=== PATIENT | male | born 1965 | race Caucasian/White ===

== ENCOUNTER 2016-07-30 17:23 | Inpatient (IN) | payer OTHER ==
[~2016-07-30] VITALS: Ht 170.2 cm; Wt 74.0 kg
[~2016-07-30 17:23] MED LIST: ADVAIR 250/501 DISK IH; ADVAIR 500-501 EACH IH; ADVAIR 500/501 DISK IH; ALBUTEROL17 GM IH; ALLERGY RELIE15.8 ML BOTH NARES; ALPRAZOLAM0.5 MG PO; ANTACID300 M1 PO; AZITHROMYCIN250 MG PO; Advair HFA 115/21 IH; CALCIUM300 MG PO; CEFTIN250 MG PO; DALIRESP500 MCG PO; DELTASONE1 MG PO; DELTASONE20 MG PO; DUONEB 2.5-0.5 M3 ML AEROSOL; ENDOCET 5-3251 EAC1 PO; HABITROL,NICODE21 MG TD; LASIX20 MG PO; LEVAQUIN500 MG PO; LEVAQUIN750 MG PO; Levaquin PO; PREDNISONE10 M2 G-TUBE; PREDNISONE10 M2 PO; PREDNISONE10 MG PO; PREDNISONE50 MG PO; PROAIR HFA8.5 GM IH; PROVENTIL,2.5 MG/0.5 IH; PROVENTIL,2.5 MG/3 M IH; RAYOS5 MG PO; ROLAIDS PO; SPIRIVA1 INHALATI IH; TYLENOL EXTRA500 MG PO; TYLENOL325 M1 PO; VENTOLIN HFA18 GM IH; VENTOLIN17 GM IH; XANAX0.5 MG PO; Xanax PO; ZANTAC150 M1 PO; ZANTAC150 MG PO; ZITHROMAX250 MG PO; predniSONE PO
[2016-07-30 17:41] LABS: CARBOXY HGB 1.9 % (0-5); METHEMOGLOBIN 1.8 % (0-1.5); PCO2 98 mm Hg (35-45); PO2 328 mm Hg (80-100); pH 7.23 (7.35-7.45)
[2016-07-30 17:42] LABS: COMMENTS - BLOOD GASES A+C+; DEVICE 840; FI02 100 %; MODE SPONT; PEEP 5 CM/H20; PRES. SUPPORT 10 CM/H2O; SITE LR; TOTAL RESP RATE 24 resp/min
[2016-07-30 18:02] LABS: EOSINOPHIL (%) 0 % (0-5); HEMATOCRIT 42.2 % (38.0-50.0); IMMATURE GRANULOCYTE (%) 0.3 % (0.0-0.7); IMMATURE GRANULOCYTE COUNT 0.5 K/uL; LYMPHOCYTE COUNT 1.7 K/uL (1.0-2.8); MCH 31.8 PG (29.0-34.0); MCHC 32.5 G/DL (30.0-36.0); MCV 97.9 FL (86-99); MEAN PLAT.VOLUME 10.9 uM^3 (9.0-12.4); MONOCYTE COUNT 1.1 K/uL (0-0.8); NEUTROPHIL (%) 82.2 % (45-76); NEUTROPHIL COUNT 13.3 K/uL (1.8-6.4); PLATELET COUNT 209 K/uL (156-360); RBC DIS.WIDTH-CV 12.4 % (11.8-14.6); RBC DIS.WIDTH-SD 43.2 % (39-53); RED BLOOD COUNT 4.31 M/uL (4.00-5.50); WHITE BLOOD COUNT 16.2 K/uL (4.1-10.2)
[2016-07-30 18:14] LABS: CHLORIDE 98 mEq/L (99-109); POTASSIUM 4.6 mEq/L (3.7-5.4); SODIUM 142 mEq/L (136-147)
[2016-07-30 18:16] LABS: GLUCOSE 127 mg/dL (70-99)
[2016-07-30 18:18] LABS: ANION GAP 6 MEQ/L (2-14)
[2016-07-30 18:20] LABS: GFR ESTIMATE (CALCULATED) > 59 mL/min/
[2016-07-30 18:21] LABS: UREA NITROGEN (BUN) 10 mg/dL (9-23)
[2016-07-30 18:23] LABS: TROP-I INTERPRETATION NEGATIVE; TROPONIN-I < 0.01 ng/mL (0.0-0.30)
[2016-07-30 19:48] LABS: BASE EXCESS 8.2 mEq/L (-3 to +3); BICARBONATE 39.4 mEq/L (22-26); CARBOXY HGB 1.9 % (0-5); METHEMOGLOBIN 1.7 % (0-1.5)
[2016-07-30 19:49] LABS: COMMENTS - BLOOD GASES C+A+; DEVICE VENTILATOR; FI02 55 %; MODE SPONT-NIV; PCO2 92 mm Hg (35-45); PEEP 5 CM/H20; PO2 194 mm Hg (80-100); PRES. SUPPORT 12 CM/H2O; SITE RR; TOTAL RESP RATE 26 resp/min
[2016-07-30 19:50] LABS: pH 7.24 (7.35-7.45)
[2016-07-30] MEDS ORDERED: TYLENOL EXTRA500 MG PO (19:54)
[2016-07-30] MEDS ORDERED: [UNRECOGNIZED DRUG - OTHER] DT (19:58)
[2016-07-30] MEDS ORDERED: LEVOFLOXACIN500 MG PO (19:59)
[2016-07-30] MEDS ORDERED: [UNRECOGNIZED DRUG - REMARK] PO (19:59)
[2016-07-30 22:45] VITALS: BP 129/83; BP 130/86
[2016-07-30 23:00] VITALS: BP 121/81
[2016-07-31] VITALS (15 sets, daily range): BP systolic 96–151; BP diastolic 70–100
[2016-07-31 00:06] LABS: METH RESISTANT S AUREUS PCR NEGATIVE (NEGATIVE)
[2016-07-31 00:07] LABS: PROBE CHECK PASS; SPECIMEN PROCESSING CONTROL PASS
[2016-07-31 06:30] LABS: HEMATOCRIT 39.4 % (38.0-50.0); MCH 31.7 PG (29.0-34.0); MCHC 31.5 G/DL (30.0-36.0); MCV 100.8 FL (86-99); MEAN PLAT.VOLUME 11.7 uM^3 (9.0-12.4); PLATELET COUNT 199 K/uL (156-360); RBC DIS.WIDTH-CV 12.8 % (11.8-14.6); RED BLOOD COUNT 3.91 M/uL (4.00-5.50)
[2016-07-31 06:32] LABS: WHITE BLOOD COUNT 11.3 K/uL (4.1-10.2)
[2016-07-31 06:44] LABS: ANION GAP 7 MEQ/L (2-14); CHLORIDE 95 MEQ/L (99-109); GFR ESTIMATE (CALCULATED) > 59 mL/min/; GLUCOSE 130 mg/dL (70-99); POTASSIUM 4.8 MEQ/L (3.7-5.4); SAMPLE HEMOLYSIS CHECK 0; SAMPLE ICTERIC CHECK 0; SAMPLE LIPEMIA CHECK 0; SODIUM 137 MEQ/L (136-147); UREA NITROGEN (BUN) 13 mg/dL (9-23)
[2016-07-31 09:39] LABS: BASE EXCESS 10.1 mEq/L (-3 to +3); BICARBONATE 39.9 mEq/L (22-26); CARBOXY HGB 2.8 % (0-5); COMMENTS - BLOOD GASES AC+; DEVICE 840 VENTILATOR; METHEMOGLOBIN 1.7 % (0-1.5); PCO2 81 mm Hg (35-45); PO2 60 mm Hg (80-100); SITE LR
[2016-07-31 09:40] LABS: CONTINUOUS POS AIRWAY PRESSURE 5 cm H2O; FI02 30 %; MODE NIPPV; PRES. SUPPORT 12 CM/H2O; TOTAL RESP RATE 17 resp/min
[2016-07-31 19:16] LABS: INFLUENZA A VIRAL ANTIGEN POSITIVE; INFLUENZA B VIRAL ANTIGEN NEGATIVE
[2016-08-01] VITALS (10 sets, daily range): BP systolic 114–146; BP diastolic 62–90
[2016-08-01 12:56] LABS: HEMATOCRIT 42.8 % (38.0-50.0); MCH 31.2 PG (29.0-34.0); MCHC 31.3 G/DL (30.0-36.0); MCV 99.8 FL (86-99); MEAN PLAT.VOLUME 10.8 uM^3 (9.0-12.4); PLATELET COUNT 219 K/uL (156-360); RBC DIS.WIDTH-CV 12.6 % (11.8-14.6); RBC DIS.WIDTH-SD 45.9 % (39-53); RED BLOOD COUNT 4.29 M/uL (4.00-5.50); WHITE BLOOD COUNT 12.9 K/uL (4.1-10.2)
[2016-08-02 03:20] VITALS: BP 136/78
[2016-08-02 08:12] LABS: EOSINOPHIL (%) 0 % (0-5); HEMATOCRIT 40.9 % (38.0-50.0); IMMATURE GRANULOCYTE (%) 0.2 % (0.0-0.7); LYMPHOCYTE COUNT 0.8 K/uL (1.0-2.8); MCH 30.7 PG (29.0-34.0); MCHC 30.8 G/DL (30.0-36.0); MCV 99.8 FL (86-99); MEAN PLAT.VOLUME 11.2 uM^3 (9.0-12.4); MONOCYTE (%) 9.4 % (3-12); MONOCYTE COUNT 0.8 K/uL (0-0.8); NEUTROPHIL COUNT 6.5 K/uL (1.8-6.4); PLATELET COUNT 211 K/uL (156-360); RBC DIS.WIDTH-CV 12.6 % (11.8-14.6)
[2016-08-02 08:14] LABS: WHITE BLOOD COUNT 8.1 K/uL (4.1-10.2)
[2016-08-02 08:19] LABS: ANION GAP ND MEQ/L (2-14); CHLORIDE 93 MEQ/L (99-109); GFR ESTIMATE (CALCULATED) > 59 mL/min/; GLUCOSE 115 mg/dL (70-99); POTASSIUM 5.1 MEQ/L (3.7-5.4); SAMPLE HEMOLYSIS CHECK 0; SAMPLE ICTERIC CHECK 0; SAMPLE LIPEMIA CHECK 0; SODIUM 140 MEQ/L (136-147)
[2016-08-02 08:21] VITALS: BP 146/86
[2016-08-02 08:26] LABS: UREA NITROGEN (BUN) 21 mg/dL (9-23)
[2016-08-02 08:27] LABS: CARBON DIOXIDE (BICARBONATE) > 40.0 MEQ/L (20-31)
[2016-08-02 11:51] VITALS: BP 139/80
[2016-08-02 12:48] LABS: ANION GAP ND MEQ/L (2-14); CHLORIDE 94 MEQ/L (99-109); GFR ESTIMATE (CALCULATED) > 59 mL/min/; GLUCOSE 104 mg/dL (70-99); POTASSIUM 4.6 MEQ/L (3.7-5.4); SAMPLE HEMOLYSIS CHECK 0; SAMPLE ICTERIC CHECK 0; SAMPLE LIPEMIA CHECK 0; SODIUM 141 MEQ/L (136-147); UREA NITROGEN (BUN) 19 mg/dL (9-23)
[2016-08-02 13:01] LABS: CARBON DIOXIDE (BICARBONATE) > 40.0 MEQ/L (20-31)
[2016-08-02 16:46] VITALS: BP 130/83
[2016-08-02 20:38] VITALS: BP 162/86
[2016-08-02 23:55] VITALS: BP 122/69
[2016-08-03 09:00] VITALS: BP 130/60
[2016-08-03 09:30] VITALS: BP 180/95
[2016-08-03 16:19] VITALS: BP 153/80
[2016-08-03 23:47] VITALS: BP 124/72
[2016-08-04 08:04] VITALS: BP 143/67
[2016-08-04 16:43] VITALS: BP 165/95
[2016-08-04 23:18] VITALS: BP 130/64
[2016-08-05 08:30] VITALS: BP 122/70
[2016-08-05 08:31] LABS: BASE EXCESS 19.1 mEq/L (-3 to +3); CARBOXY HGB 2.5 % (0-5); METHEMOGLOBIN 1.4 % (0-1.5); PCO2 78 mm Hg (35-45); PO2 65 mm Hg (80-100)
[2016-08-05 08:32] LABS: BICARBONATE 48.3 mEq/L (22-26); COMMENTS - BLOOD GASES A+C+; DEVICE NC; O2 FLOW 3 L/MIN; SITE RRA; TOTAL RESP RATE 18 resp/min
[2016-08-05 16:17] VITALS: BP 137/77
[2016-08-05 22:55] VITALS: BP 164/84
[2016-08-06 07:09] VITALS: BP 125/67
[2016-08-06 15:58] VITALS: BP 146/84
[2016-08-06 23:27] VITALS: BP 127/71
[2016-08-07 07:52] VITALS: BP 131/77
[2016-08-07 16:29] VITALS: BP 134/80
[2016-08-07 23:21] VITALS: BP 129/75
[2016-08-08 08:28] VITALS: BP 129/81
[2016-08-08] MEDS ORDERED: DOXYCYCLINE HY100 M3 PO (12:27)
[2016-08-08] MEDS ORDERED: GUAIFENESIN WI120 M1 PO (12:27)
[2016-08-08] MEDS ORDERED: MONTELUKAST SOD10 MG PO (12:27)
[2016-08-08] MEDS ORDERED: THEOPHYLLINE400 MG PO (12:27)
[2016-08-08 16:15] VITALS: BP 140/78
== END 2016-08-08 19:09 | disposition home health service (06) | DRG 193 ==
LOC: EME 17:23 → 5EAST 20:12 → 4WEST 20:12 → EDOF 20:12 → 4WEST 22:20 → 5EAST 08-01 16:39
PROVIDERS: Emergency Medicine; Internal Medicine; Internal Medicine Critical Care Medicine; Internal Medicine Pulmonary Disease
PROC: 5A09357 Assistance with Respiratory Ventilation, Less than 24 Consecutive Hours, Continuous Positive Airway Pressure (ICD-10-PCS; principal; 2016-07-30)
DX: J10.1 Influenza due to other identified influenza virus with other respiratory manifestations (principal); J96.21 Acute and chronic respiratory failure with hypoxia; J96.22 Acute and chronic respiratory failure with hypercapnia; J44.1 Chronic obstructive pulmonary disease with (acute) exacerbation; E87.2 Acidosis; J44.0 Chronic obstructive pulmonary disease with (acute) lower respiratory infection; J20.9 Acute bronchitis, unspecified; Z99.81 Dependence on supplemental oxygen; J45.901 Unspecified asthma with (acute) exacerbation; F41.9 Anxiety disorder, unspecified; K21.9 Gastro-esophageal reflux disease without esophagitis; Z87.891 Personal history of nicotine dependence
CPT/HCPCS: 36600; 71010; 71020; 80048; 80048 91; 82803; 84484; 85025; 85027; 87040; 87070; 87205; 87502; 87641; 93005; 94002; 94003; 94640; 94640 76; 94668; 94760; 94799; 99202; 99281; 99285; J0456; J0696; J1650; J2920; J2930; J3475; J7030; J7050; J7512

== ENCOUNTER 2016-12-06 01:34 | Inpatient (IN) | payer OTHER ==
[2016-12-06] VITALS (10 sets, daily range): BP systolic 99–136; BP diastolic 69–87
[~2016-12-06] VITALS: Ht 170.2 cm; Wt 72.3 kg
[~2016-12-06 01:34] MED LIST changes: +DOXYCYCLINE HY100 M3 PO; +GUAIFENESIN WI120 M1 PO; +LEVOFLOXACIN500 MG PO; +MONTELUKAST SOD10 MG PO; +THEOPHYLLINE400 MG PO; +[UNRECOGNIZED DRUG - OTHER] DT; +[UNRECOGNIZED DRUG - REMARK] PO
[2016-12-06 02:03] LABS: BASE EXCESS 9.3 mEq/L (-3 to +3); BICARBONATE 41.7 mEq/L (22-26); CARBOXY HGB 2.1 % (0-5); COMMENTS - BLOOD GASES A+C+; DEVICE 980; FI02 100 %; METHEMOGLOBIN 1.8 % (0-1.5); PCO2 102 mm Hg (35-45); PO2 202 mm Hg (80-100); SITE RR; pH 7.22 (7.35-7.45)
[2016-12-06 02:04] LABS: MODE SPONT; PEEP 5 CM/H20; PRES. SUPPORT 10 CM/H2O; TOTAL RESP RATE 26 resp/min
[2016-12-06 02:14] LABS: VENOUS PCO2 102 mm Hg (41-51)
[2016-12-06 02:15] LABS: CARBON DIOXIDE (BICARBONATE) > 40.0 MEQ/L (20-31)
[2016-12-06 02:22] LABS: CHLORIDE 99 mEq/L (99-109); POTASSIUM 4.2 mEq/L (3.7-5.4); SODIUM 145 mEq/L (136-147)
[2016-12-06 02:24] LABS: HEMATOCRIT 46.4 % (38.0-50.0); MCH 30.5 PG (29.0-34.0); MCHC 31.5 G/DL (30.0-36.0); MCV 97.1 FL (86-99); PLATELET COUNT 296 K/uL (156-360); RBC DIS.WIDTH-CV 12.8 % (11.8-14.6); RBC DIS.WIDTH-SD 45.7 % (39-53); RED BLOOD COUNT 4.78 M/uL (4.00-5.50)
[2016-12-06 02:24] LABS: GLUCOSE 133 mg/dL (70-99)
[2016-12-06 02:25] LABS: ANION GAP 11 MEQ/L (2-14)
[2016-12-06 02:27] LABS: GFR ESTIMATE (CALCULATED) > 59 mL/min/
[2016-12-06 02:28] LABS: UREA NITROGEN (BUN) 17 mg/dL (9-23)
[2016-12-06 02:31] LABS: WHITE BLOOD COUNT 34.2 K/uL (4.1-10.2)
[2016-12-06 02:33] LABS: TROP-I INTERPRETATION NEGATIVE; TROPONIN-I < 0.01 ng/mL (0.0-0.30)
[2016-12-06 09:55] LABS: BASE EXCESS 7.8 mEq/L (-3 to +3); BICARBONATE 36.4 mEq/L (22-26); CARBOXY HGB 2.8 % (0-5); COMMENTS - BLOOD GASES A+C+; DEVICE HFNC; METHEMOGLOBIN 1.9 % (0-1.5); O2 FLOW 10 L/MIN; PCO2 69 mm Hg (35-45); PO2 102 mm Hg (80-100); SITE RR; pH 7.33 (7.35-7.45)
[2016-12-06 10:06] LABS: CHLORIDE 99 mEq/L (99-109); SODIUM 143 mEq/L (136-147)
[2016-12-06 10:09] LABS: GLUCOSE 162 mg/dL (70-99)
[2016-12-06 10:10] LABS: ANION GAP 11 MEQ/L (2-14)
[2016-12-06 10:11] LABS: POTASSIUM 5.3 mEq/L (3.7-5.4); TOTAL BILIRUBIN 0.5 mg/dL (0.0-1.0)
[2016-12-06 10:12] LABS: ALKALINE PHOSPHATASE 76 IU/L (3-129)
[2016-12-06 10:13] LABS: GFR ESTIMATE (CALCULATED) > 59 mL/min/
[2016-12-06 10:14] LABS: MCH 30.2 PG (29.0-34.0); MCHC 31.2 G/DL (30.0-36.0); MCV 97.1 FL (86-99); RBC DIS.WIDTH-CV 13.1 % (11.8-14.6); RBC DIS.WIDTH-SD 46.5 % (39-53); RED BLOOD COUNT 4.43 M/uL (4.00-5.50); UREA NITROGEN (BUN) 18 mg/dL (9-23)
[2016-12-06 10:16] LABS: WHITE BLOOD COUNT 34.7 K/uL (4.1-10.2)
[2016-12-06 11:27] LABS: MEAN PLAT.VOLUME 11.2 uM^3 (9.0-12.4); PLAT.SUFFICIENCY ADEQUATE; PLATELET COUNT 250 K/uL (156-360)
[2016-12-06 12:58] LABS: METH RESISTANT S AUREUS PCR POSITIVE (NEGATIVE)
[2016-12-06 13:00] LABS: PROBE CHECK PASS
[2016-12-06] MEDS ORDERED: CLONAZEPAM0.5 MG PO (14:08)
[2016-12-06] MEDS ORDERED: PROVENTIL,2.5 MG/3 M AEROSOL (14:09)
[2016-12-06 18:04] LABS: POINT-OF-CARE METER ID UU14174217
[2016-12-07 00:24] VITALS: BP 121/70
[2016-12-07 00:55] LABS: POINT-OF-CARE USER ID BHSKTD
[2016-12-07 05:46] LABS: POINT-OF-CARE USER ID BHSKTD
[2016-12-07 07:12] LABS: EOSINOPHIL (%) 0 % (0-5); HEMATOCRIT 37.3 % (38.0-50.0); IMMATURE GRANULOCYTE COUNT 0.3 K/uL; INSTRUMENT ABS NEUTROPHIL CT 22.8 K/uL; MCH 30.6 PG (29.0-34.0); MCHC 31.9 G/DL (30.0-36.0); MCV 95.9 FL (86-99); MEAN PLAT.VOLUME 11.6 uM^3 (9.0-12.4); MONOCYTE (%) 3.5 % (3-12); MONOCYTE COUNT 0.9 K/uL (0-0.8); NEUTROPHIL (%) 91.6 % (45-76); NEUTROPHIL COUNT 22.8 K/uL (1.8-6.4); PLATELET COUNT 220 K/uL (156-360); RBC DIS.WIDTH-CV 13.1 % (11.8-14.6); RBC DIS.WIDTH-SD 46.7 % (39-53); RED BLOOD COUNT 3.89 M/uL (4.00-5.50); WHITE BLOOD COUNT 24.9 K/uL (4.1-10.2)
[2016-12-07 07:37] VITALS: BP 132/82
[2016-12-07 07:37] LABS: ANION GAP 7 MEQ/L (2-14); CHLORIDE 94 MEQ/L (99-109); GFR ESTIMATE (CALCULATED) > 59 mL/min/; GLUCOSE 122 mg/dL (70-99); MAGNESIUM 2.4 mg/dl (1.3-2.7); POTASSIUM 5.5 MEQ/L (3.7-5.4); SAMPLE HEMOLYSIS CHECK 3; SAMPLE ICTERIC CHECK 0; SAMPLE LIPEMIA CHECK 0; SODIUM 139 MEQ/L (136-147); UREA NITROGEN (BUN) 16 mg/dL (9-23)
[2016-12-07 14:29] VITALS: BP 167/75
[2016-12-07 23:26] VITALS: BP 122/71
[2016-12-08 05:42] LABS: POINT-OF-CARE METER ID UU14174225; POINT-OF-CARE USER ID BHSKTD
[2016-12-08 06:24] LABS: EOSINOPHIL (%) 0 % (0-5); IMMATURE GRANULOCYTE (%) 0.9 % (0.0-0.7); IMMATURE GRANULOCYTE COUNT 0.1 K/uL; INSTRUMENT ABS NEUTROPHIL CT 14.1 K/uL; LYMPHOCYTE COUNT 0.6 K/uL (1.0-2.8); MCHC 31.1 G/DL (30.0-36.0); MCV 96.6 FL (86-99); MEAN PLAT.VOLUME 11.3 uM^3 (9.0-12.4); MONOCYTE (%) 3.6 % (3-12); MONOCYTE COUNT 0.6 K/uL (0-0.8); NEUTROPHIL (%) 91.4 % (45-76); NEUTROPHIL COUNT 14.1 K/uL (1.8-6.4); PLATELET COUNT 222 K/uL (156-360); RBC DIS.WIDTH-CV 13.1 % (11.8-14.6); RBC DIS.WIDTH-SD 46.7 % (39-53); RED BLOOD COUNT 3.83 M/uL (4.00-5.50)
[2016-12-08 06:29] LABS: WHITE BLOOD COUNT 15.5 K/uL (4.1-10.2)
[2016-12-08 06:39] LABS: ANION GAP 6 MEQ/L (2-14); CHLORIDE 95 MEQ/L (99-109); GFR ESTIMATE (CALCULATED) > 59 mL/min/; GLUCOSE 145 mg/dL (70-99); MAGNESIUM 2.3 mg/dl (1.3-2.7); POTASSIUM 4.4 MEQ/L (3.7-5.4); SAMPLE HEMOLYSIS CHECK 0; SAMPLE ICTERIC CHECK 0; SAMPLE LIPEMIA CHECK 0; SODIUM 139 MEQ/L (136-147); UREA NITROGEN (BUN) 16 mg/dL (9-23)
[2016-12-08 07:31] VITALS: BP 132/61
[2016-12-08 11:10] LABS: POINT-OF-CARE METER ID UU14174225
[2016-12-08 17:00] VITALS: BP 151/90; BP 165/90
[2016-12-08 17:25] LABS: POINT-OF-CARE METER ID UU14188625
[2016-12-08 23:47] VITALS: BP 145/77
[2016-12-09 00:49] LABS: POINT-OF-CARE METER ID UU14174225
[2016-12-09 05:53] LABS: POINT-OF-CARE METER ID UU14174225
[2016-12-09 06:26] LABS: EOSINOPHIL (%) 0 % (0-5); HEMATOCRIT 35.9 % (38.0-50.0); IMMATURE GRANULOCYTE (%) 0.8 % (0.0-0.7); IMMATURE GRANULOCYTE COUNT 0.1 K/uL; INSTRUMENT ABS NEUTROPHIL CT 11.5 K/uL; LYMPHOCYTE COUNT 0.8 K/uL (1.0-2.8); MCH 30.4 PG (29.0-34.0); MCHC 31.5 G/DL (30.0-36.0); MCV 96.5 FL (86-99); MEAN PLAT.VOLUME 11.4 uM^3 (9.0-12.4); MONOCYTE (%) 4.2 % (3-12); MONOCYTE COUNT 0.6 K/uL (0-0.8); NEUTROPHIL (%) 88.6 % (45-76); NEUTROPHIL COUNT 11.5 K/uL (1.8-6.4); NRBC (%) 0.2 /100 WBC (0-0); PLATELET COUNT 229 K/uL (156-360); RBC DIS.WIDTH-CV 13.1 % (11.8-14.6); RBC DIS.WIDTH-SD 46.4 % (39-53); RED BLOOD COUNT 3.72 M/uL (4.00-5.50)
[2016-12-09 06:51] LABS: ANION GAP 6 MEQ/L (2-14); CHLORIDE 98 MEQ/L (99-109); GFR ESTIMATE (CALCULATED) > 59 mL/min/; GLUCOSE 126 mg/dL (70-99); MAGNESIUM 2.3 mg/dl (1.3-2.7); POTASSIUM 4.8 MEQ/L (3.7-5.4); SAMPLE HEMOLYSIS CHECK 0; SAMPLE ICTERIC CHECK 0; SAMPLE LIPEMIA CHECK 0; SODIUM 142 MEQ/L (136-147); UREA NITROGEN (BUN) 16 mg/dL (9-23)
[2016-12-09 07:41] VITALS: BP 139/77
[2016-12-09 12:44] LABS: POINT-OF-CARE METER ID UU14174225
[2016-12-09 15:10] VITALS: BP 145/89
[2016-12-09 23:48] VITALS: BP 135/73
[2016-12-10 00:59] LABS: POINT-OF-CARE METER ID UU14174225
[2016-12-10 07:28] LABS: EOSINOPHIL (%) 0 % (0-5); HEMATOCRIT 36.2 % (38.0-50.0); IMMATURE GRANULOCYTE (%) 1.5 % (0.0-0.7); IMMATURE GRANULOCYTE COUNT 0.2 K/uL; INSTRUMENT ABS NEUTROPHIL CT 9.2 K/uL; MCV 96.8 FL (86-99); MEAN PLAT.VOLUME 11.4 uM^3 (9.0-12.4); MONOCYTE (%) 6.1 % (3-12); MONOCYTE COUNT 0.7 K/uL (0-0.8); NEUTROPHIL (%) 82.9 % (45-76); NEUTROPHIL COUNT 9.2 K/uL (1.8-6.4); PLATELET COUNT 232 K/uL (156-360); RBC DIS.WIDTH-CV 13.2 % (11.8-14.6); RBC DIS.WIDTH-SD 47.5 % (39-53); RED BLOOD COUNT 3.74 M/uL (4.00-5.50); WHITE BLOOD COUNT 11.1 K/uL (4.1-10.2)
[2016-12-10 07:39] VITALS: BP 132/80
[2016-12-10 07:43] LABS: ANION GAP 6 MEQ/L (2-14); CHLORIDE 97 MEQ/L (99-109); GFR ESTIMATE (CALCULATED) > 59 mL/min/; GLUCOSE 135 mg/dL (70-99); MAGNESIUM 2.2 mg/dl (1.3-2.7); POTASSIUM 4.8 MEQ/L (3.7-5.4); SAMPLE HEMOLYSIS CHECK 0; SAMPLE ICTERIC CHECK 0; SAMPLE LIPEMIA CHECK 0; SODIUM 140 MEQ/L (136-147); UREA NITROGEN (BUN) 17 mg/dL (9-23)
[2016-12-10 12:31] LABS: POINT-OF-CARE METER ID UU14174225
[2016-12-10 15:07] VITALS: BP 155/80
[2016-12-10 19:41] VITALS: BP 136/76
[2016-12-10 23:15] VITALS: BP 136/73
[2016-12-11 06:02] LABS: POINT-OF-CARE METER ID UU14174225
[2016-12-11 07:18] LABS: EOSINOPHIL (%) 0 % (0-5); HEMATOCRIT 37.3 % (38.0-50.0); IMMATURE GRANULOCYTE (%) 4.1 % (0.0-0.7); IMMATURE GRANULOCYTE COUNT 0.5 K/uL; INSTRUMENT ABS NEUTROPHIL CT 9.4 K/uL; LYMPHOCYTE COUNT 1.6 K/uL (1.0-2.8); MCHC 31.1 G/DL (30.0-36.0); MCV 96.4 FL (86-99); MONOCYTE (%) 7.7 % (3-12); NEUTROPHIL (%) 75.3 % (45-76); NEUTROPHIL COUNT 9.4 K/uL (1.8-6.4); PLATELET COUNT 252 K/uL (156-360); RBC DIS.WIDTH-CV 13.1 % (11.8-14.6); RBC DIS.WIDTH-SD 46.3 % (39-53); RED BLOOD COUNT 3.87 M/uL (4.00-5.50); WHITE BLOOD COUNT 12.4 K/uL (4.1-10.2)
[2016-12-11 08:01] VITALS: BP 144/87
[2016-12-11 08:16] LABS: ANION GAP 7 MEQ/L (2-14); CHLORIDE 95 MEQ/L (99-109); GFR ESTIMATE (CALCULATED) > 59 mL/min/; MAGNESIUM 2.2 mg/dl (1.3-2.7); POTASSIUM 4.5 MEQ/L (3.7-5.4); SAMPLE HEMOLYSIS CHECK 0; SAMPLE ICTERIC CHECK 0; SAMPLE LIPEMIA CHECK 0; SODIUM 141 MEQ/L (136-147); THEOPHYLLINE < 2.5 MCG/ML (10-20); UREA NITROGEN (BUN) 17 mg/dL (9-23)
[2016-12-11 08:18] LABS: GLUCOSE 97 mg/dL (70-99)
[2016-12-11] MEDS ORDERED: AUGMENTIN875 MG PO (09:47)
[2016-12-11] MEDS ORDERED: PREDNISONE20 MG PO (09:47)
[2016-12-11 12:08] LABS: POINT-OF-CARE METER ID UU14174225
== END 2016-12-11 12:41 | disposition home or self-care (01) | DRG 871 ==
LOC: EME → EDBD 01:34 → EME 01:34 → 4WEST 02:33 → 5SOUTH 02:33 → EDOF 02:33 → 4WEST 09:33 → 5SOUTH 20:41
PROVIDERS: Emergency Medicine; Family Medicine; Hospitalist; Internal Medicine; Internal Medicine Nephrology; Psychiatry & Neurology Neurology
PROC: 5A09357 Assistance with Respiratory Ventilation, Less than 24 Consecutive Hours, Continuous Positive Airway Pressure (ICD-10-PCS; principal; 2016-12-06)
DX: A41.9 Sepsis, unspecified organism (principal); J44.0 Chronic obstructive pulmonary disease with (acute) lower respiratory infection; J18.9 Pneumonia, unspecified organism; J96.21 Acute and chronic respiratory failure with hypoxia; J96.22 Acute and chronic respiratory failure with hypercapnia; E87.2 Acidosis; J44.1 Chronic obstructive pulmonary disease with (acute) exacerbation; J45.909 Unspecified asthma, uncomplicated; Z99.81 Dependence on supplemental oxygen; I95.9 Hypotension, unspecified; Z87.891 Personal history of nicotine dependence; J98.11 Atelectasis; E87.5 Hyperkalemia; F41.9 Anxiety disorder, unspecified; K21.9 Gastro-esophageal reflux disease without esophagitis
CPT/HCPCS: 36600; 71010; 71020; 80048; 80053; 80198; 81003; 82803; 82948; 83605; 83735; 83880; 84100; 84484; 85025; 85027; 87040; 87449; 87641; 93005; 94002; 94010; 94640; 94640 76; 94644; 94760; 94799; 99202; 99281; 99285; J0456; J0696; J1644; J1815; J1940; J2920; J2930; J3475; J7050; J7512; J7644; S0028

== ENCOUNTER 2017-05-25 20:34 | Inpatient (IN) | payer OTHER ==
[~2017-05-25] VITALS: Ht 170.2 cm; Wt 82.1 kg
[~2017-05-25 20:34] MED LIST changes: +AUGMENTIN875 MG PO; +CLONAZEPAM0.5 MG PO; +PREDNISONE20 MG PO; +PROVENTIL,2.5 MG/3 M AEROSOL
[2017-05-25 21:10] LABS: BASE EXCESS 9.4 mEq/L (-3 to +3); BICARBONATE 39.4 mEq/L (22-26); CARBOXY HGB 2.5 % (0-5); METHEMOGLOBIN 1.8 % (0-1.5)
[2017-05-25 21:11] LABS: COMMENTS - BLOOD GASES A+C+; DEVICE HHFNC; FI02 60 %; O2 FLOW 45 L/MIN; PCO2 80 mm Hg (35-45); PO2 82 mm Hg (80-100); SITE LR; TOTAL RESP RATE 22 resp/min
[2017-05-25 21:23] LABS: BASOPHIL COUNT 0.1 K/uL (0-0.1); EOSINOPHIL (%) 0.1 % (0-5); HEMATOCRIT 44.3 % (38.0-50.0); IMMATURE GRANULOCYTE (%) 0.5 % (0.0-0.7); IMMATURE GRANULOCYTE COUNT 0.1 K/uL; INSTRUMENT ABS NEUTROPHIL CT 20.2 K/uL; MCH 30.3 PG (29.0-34.0); MCHC 31.6 G/DL (30.0-36.0); MCV 95.9 FL (86-99); MEAN PLAT.VOLUME 11.2 uM^3 (9.0-12.4); MONOCYTE (%) 5.2 % (3-12); MONOCYTE COUNT 1.2 K/uL (0-0.8); NEUTROPHIL (%) 89.3 % (45-76); NEUTROPHIL COUNT 20.2 K/uL (1.8-6.4); PLATELET COUNT 198 K/uL (156-360); RBC DIS.WIDTH-CV 12.4 % (11.8-14.6); RBC DIS.WIDTH-SD 43.9 % (39-53); RED BLOOD COUNT 4.62 M/uL (4.00-5.50); WHITE BLOOD COUNT 22.7 K/uL (4.1-10.2)
[2017-05-25 21:35] LABS: CHLORIDE 97 mEq/L (99-109); POTASSIUM 4.2 mEq/L (3.7-5.4); SODIUM 141 mEq/L (136-147)
[2017-05-25 21:38] LABS: GLUCOSE 133 mg/dL (70-99)
[2017-05-25 21:39] LABS: ANION GAP 12 MEQ/L (2-14)
[2017-05-25 21:40] LABS: TOTAL BILIRUBIN 0.4 mg/dL (0.0-1.0)
[2017-05-25 21:41] LABS: ALKALINE PHOSPHATASE 105 IU/L (3-129); SERUM ETHYL ALCOHOL < 10 mg/dL
[2017-05-25 21:42] LABS: GFR ESTIMATE (CALCULATED) > 59 mL/min/
[2017-05-25 21:43] LABS: UREA NITROGEN (BUN) 11 mg/dL (9-23)
[2017-05-25 21:46] LABS: TROP-I INTERPRETATION NEGATIVE; TROPONIN-I < 0.01 ng/mL (0.0-0.30)
[2017-05-25] MEDS ORDERED: PREDNISONE5 MG PO (21:56)
[2017-05-25 22:17] LABS: BASE EXCESS 9.1 mEq/L (-3 to +3); BICARBONATE 38.3 mEq/L (22-26); CARBOXY HGB 2.8 % (0-5); METHEMOGLOBIN 1.4 % (0-1.5); PCO2 76 mm Hg (35-45); PO2 68 mm Hg (80-100); pH 7.31 (7.35-7.45)
[2017-05-25 22:18] LABS: COMMENTS - BLOOD GASES A+C+; DEVICE HHFNC; FI02 50 %; O2 FLOW 40 L/MIN; SITE LR; TOTAL RESP RATE 23 resp/min
[2017-05-25 22:42] LABS: THEOPHYLLINE 3.7 MCG/ML (10-20)
[2017-05-26 02:31] VITALS: BP 130/68
[2017-05-26 05:44] LABS: HEMATOCRIT 36.4 % (38.0-50.0); MCH 31.4 PG (29.0-34.0); MCHC 31.9 G/DL (30.0-36.0); MCV 98.4 FL (86-99); MEAN PLAT.VOLUME 12.2 uM^3 (9.0-12.4); PLATELET COUNT 178 K/uL (156-360); RBC DIS.WIDTH-CV 12.6 % (11.8-14.6); RBC DIS.WIDTH-SD 45.6 % (39-53)
[2017-05-26 05:57] LABS: ANION GAP 5 MEQ/L (2-14); CHLORIDE 102 MEQ/L (99-109); GFR ESTIMATE (CALCULATED) > 59 mL/min/; POTASSIUM 4.6 MEQ/L (3.7-5.4); SAMPLE HEMOLYSIS CHECK 0; SAMPLE ICTERIC CHECK 0; SAMPLE LIPEMIA CHECK 0; SODIUM 139 MEQ/L (136-147); UREA NITROGEN (BUN) 9 mg/dL (9-23)
[2017-05-26 05:58] LABS: GLUCOSE 237 mg/dL (70-99)
[2017-05-26 07:10] VITALS: BP 105/58
[2017-05-26 11:30] VITALS: BP 126/68
[2017-05-26 15:35] VITALS: BP 141/77
[2017-05-26 19:57] VITALS: BP 143/82
[2017-05-26 23:17] VITALS: BP 126/67
[2017-05-27 04:16] VITALS: BP 132/96
[2017-05-27 05:55] LABS: EOSINOPHIL (%) 0 % (0-5); HEMATOCRIT 39.4 % (38.0-50.0); IMMATURE GRANULOCYTE (%) 1.1 % (0.0-0.7); IMMATURE GRANULOCYTE COUNT 0.2 K/uL; INSTRUMENT ABS NEUTROPHIL CT 20.3 K/uL; LYMPHOCYTE COUNT 0.8 K/uL (1.0-2.8); MCH 29.9 PG (29.0-34.0); MCHC 29.9 G/DL (30.0-36.0); MEAN PLAT.VOLUME 12.1 uM^3 (9.0-12.4); MONOCYTE COUNT 0.9 K/uL (0-0.8); NEUTROPHIL (%) 91.1 % (45-76); NEUTROPHIL COUNT 20.3 K/uL (1.8-6.4); PLATELET COUNT 197 K/uL (156-360); RBC DIS.WIDTH-CV 12.5 % (11.8-14.6); RBC DIS.WIDTH-SD 46.8 % (39-53); RED BLOOD COUNT 3.94 M/uL (4.00-5.50); WHITE BLOOD COUNT 22.2 K/uL (4.1-10.2)
[2017-05-27 06:23] LABS: ANION GAP 6 MEQ/L (2-14); CHLORIDE 99 MEQ/L (99-109); GFR ESTIMATE (CALCULATED) > 59 mL/min/; GLUCOSE 136 mg/dL (70-99); POTASSIUM 4.2 MEQ/L (3.7-5.4); SAMPLE HEMOLYSIS CHECK 0; SAMPLE ICTERIC CHECK 0; SAMPLE LIPEMIA CHECK 0; SODIUM 142 MEQ/L (136-147); UREA NITROGEN (BUN) 15 mg/dL (9-23)
[2017-05-27 08:10] VITALS: BP 134/72
[2017-05-27 11:39] VITALS: BP 144/83
[2017-05-27 16:00] VITALS: BP 142/78
[2017-05-27 18:57] VITALS: BP 147/75
[2017-05-27 23:00] VITALS: BP 159/94
[2017-05-28 03:49] VITALS: BP 146/83
[2017-05-28 05:49] LABS: EOSINOPHIL (%) 0 % (0-5); HEMATOCRIT 35.1 % (38.0-50.0); IMMATURE GRANULOCYTE (%) 1.2 % (0.0-0.7); IMMATURE GRANULOCYTE COUNT 0.2 K/uL; LYMPHOCYTE COUNT 0.4 K/uL (1.0-2.8); MCH 31.5 PG (29.0-34.0); MCHC 31.1 G/DL (30.0-36.0); MCV 101.4 FL (86-99); MEAN PLAT.VOLUME 12.3 uM^3 (9.0-12.4); MONOCYTE (%) 3.5 % (3-12); MONOCYTE COUNT 0.6 K/uL (0-0.8); NEUTROPHIL (%) 92.7 % (45-76); NRBC (%) 0.2 /100 WBC (0-0); PLATELET COUNT 169 K/uL (156-360); RBC DIS.WIDTH-CV 12.6 % (11.8-14.6); RBC DIS.WIDTH-SD 47.4 % (39-53); RED BLOOD COUNT 3.46 M/uL (4.00-5.50); WHITE BLOOD COUNT 16.2 K/uL (4.1-10.2)
[2017-05-28 06:37] LABS: ANION GAP 5 MEQ/L (2-14); CHLORIDE 98 MEQ/L (99-109); GFR ESTIMATE (CALCULATED) > 59 mL/min/; GLUCOSE 131 mg/dL (70-99); POTASSIUM 3.9 MEQ/L (3.7-5.4); SAMPLE HEMOLYSIS CHECK 0; SAMPLE ICTERIC CHECK 0; SAMPLE LIPEMIA CHECK 0; SODIUM 143 MEQ/L (136-147); UREA NITROGEN (BUN) 14 mg/dL (9-23)
[2017-05-28 07:23] VITALS: BP 122/74
[2017-05-28 11:07] VITALS: BP 146/80
[2017-05-28 13:38] VITALS: BP 145/79
[2017-05-28 23:32] VITALS: BP 159/90
[2017-05-29 05:26] LABS: EOSINOPHIL (%) 0 % (0-5); HEMATOCRIT 34.3 % (38.0-50.0); IMMATURE GRANULOCYTE (%) 0.6 % (0.0-0.7); IMMATURE GRANULOCYTE COUNT 0.1 K/uL; INSTRUMENT ABS NEUTROPHIL CT 10.8 K/uL; LYMPHOCYTE COUNT 1.1 K/uL (1.0-2.8); MCH 31.3 PG (29.0-34.0); MCHC 30.9 G/DL (30.0-36.0); MCV 101.2 FL (86-99); MEAN PLAT.VOLUME 11.4 uM^3 (9.0-12.4); MONOCYTE (%) 7.2 % (3-12); MONOCYTE COUNT 0.9 K/uL (0-0.8); NEUTROPHIL (%) 83.9 % (45-76); NEUTROPHIL COUNT 10.8 K/uL (1.8-6.4); NRBC (%) 0.2 /100 WBC (0-0); PLATELET COUNT 169 K/uL (156-360); RBC DIS.WIDTH-CV 12.6 % (11.8-14.6); RBC DIS.WIDTH-SD 47.7 % (39-53); RED BLOOD COUNT 3.39 M/uL (4.00-5.50); WHITE BLOOD COUNT 12.9 K/uL (4.1-10.2)
[2017-05-29 06:00] LABS: ANION GAP ND MEQ/L (2-14); CHLORIDE 97 MEQ/L (99-109); GFR ESTIMATE (CALCULATED) > 59 mL/min/; GLUCOSE 109 mg/dL (70-99); SAMPLE HEMOLYSIS CHECK 0; SAMPLE ICTERIC CHECK 0; SAMPLE LIPEMIA CHECK 0; SODIUM 145 MEQ/L (136-147); UREA NITROGEN (BUN) 14 mg/dL (9-23)
[2017-05-29 06:01] LABS: CARBON DIOXIDE (BICARBONATE) > 40.0 MEQ/L (20-31)
[2017-05-29 07:03] VITALS: BP 142/82
[2017-05-29 15:05] VITALS: BP 160/98
[2017-05-29 20:30] VITALS: BP 132/78
[2017-05-29 23:04] VITALS: BP 146/84
[2017-05-30 05:54] LABS: EOSINOPHIL (%) 0.1 % (0-5); HEMATOCRIT 34.6 % (38.0-50.0); IMMATURE GRANULOCYTE (%) 0.5 % (0.0-0.7); IMMATURE GRANULOCYTE COUNT 0.1 K/uL; INSTRUMENT ABS NEUTROPHIL CT 8.4 K/uL; MCHC 30.1 G/DL (30.0-36.0); MCV 99.7 FL (86-99); MEAN PLAT.VOLUME 11.1 uM^3 (9.0-12.4); MONOCYTE (%) 10.6 % (3-12); MONOCYTE COUNT 1.2 K/uL (0-0.8); NEUTROPHIL (%) 71.8 % (45-76); NEUTROPHIL COUNT 8.4 K/uL (1.8-6.4); PLATELET COUNT 180 K/uL (156-360); RBC DIS.WIDTH-CV 12.4 % (11.8-14.6); RBC DIS.WIDTH-SD 45.6 % (39-53); RED BLOOD COUNT 3.47 M/uL (4.00-5.50); WHITE BLOOD COUNT 11.7 K/uL (4.1-10.2)
[2017-05-30 06:52] LABS: ANION GAP ND MEQ/L (2-14); CHLORIDE 96 MEQ/L (99-109); GFR ESTIMATE (CALCULATED) > 59 mL/min/; GLUCOSE 83 mg/dL (70-99); POTASSIUM 3.4 MEQ/L (3.7-5.4); SAMPLE HEMOLYSIS CHECK 0; SAMPLE ICTERIC CHECK 0; SAMPLE LIPEMIA CHECK 0; SODIUM 148 MEQ/L (136-147); UREA NITROGEN (BUN) 10 mg/dL (9-23)
[2017-05-30 06:57] LABS: CARBON DIOXIDE (BICARBONATE) > 40.0 MEQ/L (20-31)
[2017-05-30 07:23] VITALS: BP 135/82
[2017-05-30 16:16] VITALS: BP 166/95
[2017-05-30 19:30] VITALS: BP 115/68
[2017-05-31] VITALS (7 sets, daily range): BP systolic 119–156; BP diastolic 72–753
[2017-06-01 04:03] VITALS: BP 123/80
[2017-06-01 06:36] LABS: EOSINOPHIL (%) 1.6 % (0-5); EOSINOPHIL COUNT 0.2 K/uL (0-0.3); HEMATOCRIT 35.6 % (38.0-50.0); IMMATURE GRANULOCYTE COUNT 0.1 K/uL; INSTRUMENT ABS NEUTROPHIL CT 6.2 K/uL; LYMPHOCYTE COUNT 2.2 K/uL (1.0-2.8); MCH 30.9 PG (29.0-34.0); MCHC 31.5 G/DL (30.0-36.0); MCV 98.3 FL (86-99); MEAN PLAT.VOLUME 10.9 uM^3 (9.0-12.4); MONOCYTE (%) 8.2 % (3-12); MONOCYTE COUNT 0.8 K/uL (0-0.8); NEUTROPHIL (%) 65.8 % (45-76); NEUTROPHIL COUNT 6.2 K/uL (1.8-6.4); PLATELET COUNT 187 K/uL (156-360); RBC DIS.WIDTH-CV 12.4 % (11.8-14.6); RED BLOOD COUNT 3.62 M/uL (4.00-5.50); WHITE BLOOD COUNT 9.4 K/uL (4.1-10.2)
[2017-06-01 06:58] LABS: ANION GAP ND MEQ/L (2-14); CHLORIDE 97 MEQ/L (99-109); GFR ESTIMATE (CALCULATED) > 59 mL/min/; GLUCOSE 84 mg/dL (70-99); POTASSIUM 3.7 MEQ/L (3.7-5.4); SAMPLE HEMOLYSIS CHECK 0; SAMPLE ICTERIC CHECK 0; SAMPLE LIPEMIA CHECK 0; SODIUM 146 MEQ/L (136-147); UREA NITROGEN (BUN) 10 mg/dL (9-23)
[2017-06-01 07:02] LABS: CARBON DIOXIDE (BICARBONATE) > 40.0 MEQ/L (20-31)
[2017-06-01 07:05] VITALS: BP 140/82
[2017-06-01 11:21] VITALS: BP 155/72
[2017-06-01] MEDS ORDERED: THEOPHYLLINE400 MG PO (13:15)
[2017-06-01] MEDS ORDERED: PREDNISONE20 MG PO (13:16)
[2017-06-01] MEDS ORDERED: LEVAQUIN500 MG PO (13:16)
== END 2017-06-01 15:03 | disposition home health service (06) | DRG 190 ==
LOC: EME 20:34 → 4EAST 23:24 → EDOF 23:24 → ENRESERV 23:26 → 4EAST 05-26 02:04 → ENRESERV 05-28 11:31 → 5EAST 05-28 12:45 → ENPENDDIS 06-01 → 5EAST 06-01 15:03
PROVIDERS: Emergency Medicine; Hospitalist; Internal Medicine Pulmonary Disease; Student in an Organized Health Care Education/Training Program
DX: J44.1 Chronic obstructive pulmonary disease with (acute) exacerbation (principal); J44.0 Chronic obstructive pulmonary disease with (acute) lower respiratory infection; J14 Pneumonia due to Hemophilus influenzae; A41.9 Sepsis, unspecified organism; J96.21 Acute and chronic respiratory failure with hypoxia; J96.22 Acute and chronic respiratory failure with hypercapnia; J20.9 Acute bronchitis, unspecified; Z99.81 Dependence on supplemental oxygen; R00.0 Tachycardia, unspecified; K21.9 Gastro-esophageal reflux disease without esophagitis; F41.9 Anxiety disorder, unspecified; Z79.52 Long term (current) use of systemic steroids; Z87.891 Personal history of nicotine dependence; Z80.1 Family history of malignant neoplasm of trachea, bronchus and lung; Z82.5 Family history of asthma and other chronic lower respiratory diseases
CPT/HCPCS: 36600; 71010; 71275; 80048; 80053; 80198; 81003; 82803; 83605; 83735; 83880; 84484; 85025; 85027; 87040; 87070; 87077; 87181; 87185; 87205; 87502; 93005; 94640; 94640 76; 94667; 94668; 94760; 94799; 99202; 99281; 99285; G0480; J0456; J0696; J1100; J1650; J2543; J2930; J3105; J3370; J7030; J7050; J7512; J7644

== ENCOUNTER 2017-08-25 20:08 | Inpatient (IN) | payer OTHER ==
[~2017-08-25] VITALS: Ht 170.2 cm; Wt 66.4 kg
[~2017-08-25 20:08] MED LIST changes: +PREDNISONE5 MG PO
[2017-08-25 20:40] LABS: HEMATOCRIT 42.8 % (38.0-50.0); HEMOGLOBIN 13.8 G/DL (12.5-16.6); MCH 31.2 PG (29.0-34.0); MCHC 32.2 G/DL (30.0-36.0); MCV 96.6 FL (86-99); RBC DIS.WIDTH-CV 12.6 % (11.8-14.6); RBC DIS.WIDTH-SD 45.2 % (39-53); RED BLOOD COUNT 4.43 M/uL (4.00-5.50); WHITE BLOOD COUNT 12.9 K/uL (4.1-10.2)
[2017-08-25 20:43] LABS: CHLORIDE 95 mEq/L (99-109); PLATELET COUNT 204 K/uL (156-360); POTASSIUM 4.3 mEq/L (3.7-5.4); SODIUM 142 mEq/L (136-147)
[2017-08-25 20:45] LABS: BASE EXCESS 14.1 mEq/L (-3 to +3); BICARBONATE 46.5 mEq/L (22-26); COMMENTS - BLOOD GASES C+; DEVICE NEB MASK; O2 FLOW 7 L/MIN; PCO2 106 mm Hg (35-45); PO2 44 mm Hg (80-100); SITE LR; TOTAL RESP RATE 22 resp/min; pH 7.25 (7.35-7.45)
[2017-08-25 20:45] LABS: GLUCOSE 111 mg/dL (70-99)
[2017-08-25 20:48] LABS: CARBON DIOXIDE (BICARBONATE) > 40.0 MEQ/L (20-31); VENOUS PCO2 105 mm Hg (41-51)
[2017-08-25 20:48] LABS: CREATININE 0.7 mg/dL (0.6-1.3); GFR ESTIMATE (CALCULATED) > 59 mL/min/ (58.99-99999)
[2017-08-25 20:49] LABS: UREA NITROGEN (BUN) 11 mg/dL (9-23)
[2017-08-25 21:10] LABS: TROP-I INTERPRETATION NEGATIVE; TROPONIN-I < 0.01 ng/mL (0.0-0.30)
[2017-08-25] MEDS ORDERED: BREO ELLIPTA I1 EACH IH (21:48)
[2017-08-25] MEDS ORDERED: TUMS500 MG PO (21:49)
[2017-08-25] MEDS ORDERED: PREDNISONE5 MG PO (21:49)
[2017-08-25] MEDS ORDERED: THEOPHYLLINE400 MG PO (21:49)
[2017-08-25 23:29] LABS: BASE EXCESS 15.1 mEq/L (-3 to +3); BICARBONATE 46.6 mEq/L (22-26); CARBOXY HGB 1.8 % (0-5); METHEMOGLOBIN 1.4 % (0-1.5); PCO2 97 mm Hg (35-45); PO2 119 mm Hg (80-100); SITE LR; pH 7.29 (7.35-7.45)
[2017-08-25 23:30] LABS: COMMENTS - BLOOD GASES C+; DEVICE VM; FI02 50 %; O2 FLOW 12 L/MIN; TOTAL RESP RATE 20 resp/min
[2017-08-26] VITALS (14 sets, daily range): BP systolic 108–162; BP diastolic 72–92
[2017-08-26 05:35] LABS: HEMATOCRIT 39.5 % (38.0-50.0); HEMOGLOBIN 12.4 G/DL (12.5-16.6); MCH 30.6 PG (29.0-34.0); MCHC 31.4 G/DL (30.0-36.0); MCV 97.5 FL (86-99); PLATELET COUNT 182 K/uL (156-360); RBC DIS.WIDTH-CV 12.7 % (11.8-14.6); RBC DIS.WIDTH-SD 45.6 % (39-53); RED BLOOD COUNT 4.05 M/uL (4.00-5.50); WHITE BLOOD COUNT 7.2 K/uL (4.1-10.2)
[2017-08-26 06:08] LABS: CHLORIDE 94 MEQ/L (99-109); CREATININE 0.7 MG/DL (0.6-1.3); GFR ESTIMATE (CALCULATED) > 59 mL/min/ (58.99-99999); POTASSIUM 4.8 MEQ/L (3.7-5.4); SODIUM 139 MEQ/L (136-147); UREA NITROGEN (BUN) 15 mg/dL (9-23)
[2017-08-26 06:13] LABS: GLUCOSE 180 mg/dL (70-99)
[2017-08-26 20:41] LABS: BASE EXCESS 16.2 mEq/L (-3 to +3); BICARBONATE 45.8 mEq/L (22-26); CARBOXY HGB 2.2 % (0-5); METHEMOGLOBIN 1.8 % (0-1.5); PCO2 81 mm Hg (35-45); PO2 85 mm Hg (80-100); pH 7.36 (7.35-7.45)
[2017-08-26 20:42] LABS: COMMENTS - BLOOD GASES A+C+; DEVICE HI FLOW NC; O2 FLOW 5 L/MIN; SITE LR
[2017-08-27] VITALS (9 sets, daily range): BP systolic 98–172; BP diastolic 65–91
[2017-08-28] VITALS (23 sets, daily range): BP systolic 68–199; BP diastolic 57–109
[2017-08-28 04:04] LABS: BASE EXCESS 15.5 mEq/L (-3 to +3); BICARBONATE 48.2 mEq/L (22-26); CARBOXY HGB 2.4 % (0-5); METHEMOGLOBIN 1.9 % (0-1.5); PO2 82 mm Hg (80-100)
[2017-08-28 04:05] LABS: DEVICE NCHH; FI02 60 %; O2 FLOW 40 L/MIN; PCO2 110 mm Hg (35-45); SITE LR; TOTAL RESP RATE 27 resp/min; pH 7.25 (7.35-7.45)
[2017-08-28 07:06] LABS: CARBON DIOXIDE (BICARBONATE) > 40.0 MEQ/L (20-31); CHLORIDE 89 MEQ/L (99-109); CREATININE 0.7 MG/DL (0.6-1.3); GFR ESTIMATE (CALCULATED) > 59 mL/min/ (58.99-99999); GLUCOSE 158 mg/dL (70-99); POTASSIUM 5.1 MEQ/L (3.7-5.4); SODIUM 143 MEQ/L (136-147); UREA NITROGEN (BUN) 16 mg/dL (9-23)
[2017-08-28 08:48] LABS: BASOPHIL (%) 0.1 % (0-1); EOSINOPHIL (%) 0 % (0-5); HEMATOCRIT 44.1 % (38.0-50.0); HEMOGLOBIN 13.9 G/DL (12.5-16.6); IMMATURE GRANULOCYTE (%) 0.5 % (0.0-0.7); LYMPHOCYTE (%) 1.4 % (15-42); LYMPHOCYTE COUNT 0.2 K/uL (1.0-2.8); MCH 31.1 PG (29.0-34.0); MCHC 31.5 G/DL (30.0-36.0); MCV 98.7 FL (86-99); MONOCYTE (%) 4.4 % (3-12); MONOCYTE COUNT 0.8 K/uL (0-0.8); NEUTROPHIL (%) 93.6 % (45-76); NEUTROPHIL COUNT 16.1 K/uL (1.8-6.4); PLATELET COUNT 218 K/uL (156-360); RBC DIS.WIDTH-CV 12.8 % (11.8-14.6); RBC DIS.WIDTH-SD 46.7 % (39-53); RED BLOOD COUNT 4.47 M/uL (4.00-5.50); WHITE BLOOD COUNT 17.2 K/uL (4.1-10.2)
[2017-08-28 11:30] LABS: BASE EXCESS 18.9 mEq/L (-3 to +3); BICARBONATE 50.4 mEq/L (22-26); CARBOXY HGB 2.2 % (0-5); PCO2 100 mm Hg (35-45); PO2 83 mm Hg (80-100); pH 7.31 (7.35-7.45)
[2017-08-28 11:31] LABS: COMMENTS - BLOOD GASES A+C+; DEVICE N/V 980; FI02 50 %; MECHANICAL RATE 8 resp/min; MODE SPONT; PEEP 5 CM/H20; PRES. SUPPORT 15 CM/H2O; SITE RR
[2017-08-28 16:14] LABS: BASE EXCESS 18.5 mEq/L (-3 to +3); BICARBONATE 45.4 mEq/L (22-26); CARBOXY HGB 2.1 % (0-5); FI02 40 %; MECHANICAL RATE 20 resp/min; METHEMOGLOBIN 1.6 % (0-1.5); MODE A/C; PCO2 61 mm Hg (35-45); PO2 79 mm Hg (80-100); pH 7.48 (7.35-7.45)
[2017-08-28 16:15] LABS: DEVICE VENT; PEEP 5 CM/H20; SITE RR; TIDAL VOLUME 450 ML; TOTAL RESP RATE 20 resp/min
[2017-08-29] VITALS (24 sets, daily range): BP systolic 88–183; BP diastolic 62–117
[2017-08-29 04:36] LABS: BASOPHIL (%) 0.1 % (0-1); EOSINOPHIL (%) 0 % (0-5); HEMATOCRIT 39.2 % (38.0-50.0); HEMOGLOBIN 12.6 G/DL (12.5-16.6); IMMATURE GRANULOCYTE (%) 0.3 % (0.0-0.7); LYMPHOCYTE (%) 6.3 % (15-42); LYMPHOCYTE COUNT 0.8 K/uL (1.0-2.8); MCHC 32.1 G/DL (30.0-36.0); MCV 96.6 FL (86-99); MONOCYTE (%) 7.1 % (3-12); MONOCYTE COUNT 0.9 K/uL (0-0.8); NEUTROPHIL (%) 86.2 % (45-76); NEUTROPHIL COUNT 10.9 K/uL (1.8-6.4); PLATELET COUNT 179 K/uL (156-360); RBC DIS.WIDTH-CV 12.6 % (11.8-14.6); RBC DIS.WIDTH-SD 45.2 % (39-53); RED BLOOD COUNT 4.06 M/uL (4.00-5.50); WHITE BLOOD COUNT 12.6 K/uL (4.1-10.2)
[2017-08-29 04:50] LABS: CHLORIDE 90 mEq/L (99-109); POTASSIUM 4.8 mEq/L (3.7-5.4); SODIUM 140 mEq/L (136-147)
[2017-08-29 04:51] LABS: MAGNESIUM 2.1 mg/dL (1.3-2.7)
[2017-08-29 04:52] LABS: GLUCOSE 165 mg/dL (70-99)
[2017-08-29 04:56] LABS: CREATININE 0.9 mg/dL (0.6-1.3); GFR ESTIMATE (CALCULATED) > 59 mL/min/ (58.99-99999)
[2017-08-29 04:59] LABS: UREA NITROGEN (BUN) 28 mg/dL (9-23)
[2017-08-29 06:29] LABS: BASE EXCESS 18.4 mEq/L (-3 to +3); BICARBONATE 46.7 mEq/L (22-26); CARBOXY HGB 2.3 % (0-5); METHEMOGLOBIN 1.8 % (0-1.5); PO2 75 mm Hg (80-100); pH 7.42 (7.35-7.45)
[2017-08-29 06:30] LABS: COMMENTS - BLOOD GASES C+; DEVICE VENT; FI02 40 %; MECHANICAL RATE 20 resp/min; MODE AC; PCO2 72 mm Hg (35-45); PEEP 5 CM/H20; SITE LR; TIDAL VOLUME 450 ML; TOTAL RESP RATE 20 resp/min
[2017-08-30] VITALS (23 sets, daily range): BP systolic 97–126; BP diastolic 69–89
[2017-08-30 05:51] LABS: BASOPHIL (%) 0.1 % (0-1); EOSINOPHIL (%) 0 % (0-5); HEMATOCRIT 36.9 % (38.0-50.0); HEMOGLOBIN 11.5 G/DL (12.5-16.6); IMMATURE GRANULOCYTE (%) 0.4 % (0.0-0.7); LYMPHOCYTE COUNT 0.4 K/uL (1.0-2.8); MCH 29.9 PG (29.0-34.0); MCHC 31.2 G/DL (30.0-36.0); MCV 96.1 FL (86-99); MONOCYTE (%) 8.1 % (3-12); MONOCYTE COUNT 1.1 K/uL (0-0.8); NEUTROPHIL (%) 88.4 % (45-76); NEUTROPHIL COUNT 11.5 K/uL (1.8-6.4); PLATELET COUNT 169 K/uL (156-360); RBC DIS.WIDTH-SD 45.9 % (39-53); RED BLOOD COUNT 3.84 M/uL (4.00-5.50)
[2017-08-30 06:17] LABS: ALBUMIN 3.5 G/DL (3.2-4.8); ALKALINE PHOSPHATASE 52 IU/L (3-129); ALT (GPT) 10 IU/L (3-49); AST (GOT) 14 IU/L (2-34); CHLORIDE 94 MEQ/L (99-109); CREATININE 0.6 MG/DL (0.6-1.3); GFR ESTIMATE (CALCULATED) > 59 mL/min/ (58.99-99999); GLUCOSE 187 mg/dL (70-99); MAGNESIUM 2.6 mg/dl (1.3-2.7); PHOSPHORUS 3.6 mg/dL (2.5-4.9); POTASSIUM 4.5 MEQ/L (3.7-5.4); SODIUM 138 MEQ/L (136-147); THEOPHYLLINE 4.5 MCG/ML (10-20); TOTAL BILIRUBIN 0.2 MG/DL (0.0-1.0); TOTAL PROTEIN 5.6 G/DL (6.4-8.3); UREA NITROGEN (BUN) 23 mg/dL (9-23)
[2017-08-31] VITALS (24 sets, daily range): BP systolic 97–170; BP diastolic 71–88
[2017-09-01] VITALS (25 sets, daily range): BP systolic 100–154; BP diastolic 72–98
[2017-09-02] VITALS (24 sets, daily range): BP systolic 77–133; BP diastolic 63–88
[2017-09-02 06:52] LABS: ABS NEUTROPHIL COUNT 14.5; ANISOCYTOSIS 1+; ATYPICAL LYMPHOCYTE 4.4 %; BAND NEUTROPHILS 1.8 % (0-8.0); EOSINOPHIL ABS CT 0; HEMATOCRIT 38.7 % (38.0-50.0); HEMOGLOBIN 11.5 G/DL (12.5-16.6); HYPOCHROMASIA 1+; MCH 30.3 PG (29.0-34.0); MCHC 29.7 G/DL (30.0-36.0); MCV 102.1 FL (86-99); MONOCYTES 0.9 % (0-9.0); MYELOCYTES 4.5 %; NRBC (%) 0.9 /100 WBC (0-0); NUCLEATED RBC'S 0.9; PLAT.SUFFICIENCY ADEQUATE; PLATELET COUNT 204 K/uL (156-360); POIKILOCYTOSIS 1+; RBC DIS.WIDTH-SD 48.4 % (39-53); RED BLOOD COUNT 3.79 M/uL (4.00-5.50); SEG.NEUTROPHILS 88.4 % (46.0-76.0); WHITE BLOOD COUNT 16.1 K/uL (4.1-10.2)
[2017-09-02 08:12] LABS: ALBUMIN 3.3 G/DL (3.2-4.8); ALKALINE PHOSPHATASE 68 IU/L (3-129); CHLORIDE 101 MEQ/L (99-109); CREATININE 0.7 MG/DL (0.6-1.3); GFR ESTIMATE (CALCULATED) > 59 mL/min/ (58.99-99999); GLUCOSE 249 mg/dL (70-99); SODIUM 141 MEQ/L (136-147); TOTAL BILIRUBIN 0.2 MG/DL (0.0-1.0); TOTAL PROTEIN 6.2 G/DL (6.4-8.3)
[2017-09-02 08:19] LABS: ALT (GPT) 147 IU/L (3-49); POTASSIUM 6.6 MEQ/L (3.7-5.4); UREA NITROGEN (BUN) 59 mg/dL (9-23)
[2017-09-02 08:20] LABS: AST (GOT) 59 IU/L (2-34)
[2017-09-02 08:25] LABS: BASE EXCESS 13.9 mEq/L (-3 to +3); BICARBONATE 41.8 mEq/L (22-26); CARBOXY HGB 1.8 % (0-5); COMMENTS - BLOOD GASES A+C+; DEVICE 840; FI02 40 %; METHEMOGLOBIN 1.9 % (0-1.5); PCO2 69 mm Hg (35-45); PO2 123 mm Hg (80-100); SITE RR; pH 7.39 (7.35-7.45)
[2017-09-02 08:26] LABS: INSPIRATION TIME 0.8 seconds; MECHANICAL RATE 16 resp/min; MODE AC/PC; PEEP 5 CM/H20; PRESSURE CONTROL VENTILATION 40 CM H20; TOTAL RESP RATE 16 resp/min
[2017-09-02 19:36] LABS: CHLORIDE 101 MEQ/L (99-109); SODIUM 142 MEQ/L (136-147)
[2017-09-02 19:39] LABS: POTASSIUM 5.4 MEQ/L (3.7-5.4)
[2017-09-02 19:54] LABS: CREATININE 0.7 MG/DL (0.6-1.3); GFR ESTIMATE (CALCULATED) > 59 mL/min/ (58.99-99999); GLUCOSE 239 mg/dL (70-99); UREA NITROGEN (BUN) 63 mg/dL (9-23)
[2017-09-03] VITALS (23 sets, daily range): BP systolic 97–178; BP diastolic 63–100
[2017-09-03 02:43] LABS: BASE EXCESS 9.8 mEq/L (-3 to +3); BICARBONATE 43.5 mEq/L (22-26); CARBOXY HGB 2.2 % (0-5); METHEMOGLOBIN 2.2 % (0-1.5)
[2017-09-03 02:44] LABS: COMMENTS - BLOOD GASES A+C+; DEVICE 840 VENT; FI02 60 %; MECHANICAL RATE 30 resp/min; MODE ACPC; PCO2 122 mm Hg (35-45); PO2 166 mm Hg (80-100); PRESSURE CONTROL VENTILATION 30 CM H20; SITE RR; TOTAL RESP RATE 30 resp/min; pH 7.16 (7.35-7.45)
[2017-09-03 02:45] LABS: INSPIRATION TIME 0.8 seconds; PEEP 5 CM/H20
[2017-09-03 05:13] LABS: BASE EXCESS 13.8 mEq/L (-3 to +3); BICARBONATE 44.2 mEq/L (22-26); METHEMOGLOBIN 2.3 % (0-1.5)
[2017-09-03 05:14] LABS: COMMENTS - BLOOD GASES A+C+; DEVICE PB840; FI02 50 %; MECHANICAL RATE 30 resp/min; MODE ACPC; PCO2 92 mm Hg (35-45); PEEP 5 CM/H20; PO2 140 mm Hg (80-100); PRESSURE CONTROL VENTILATION 35 CM H20; SITE RR; TOTAL RESP RATE 30 resp/min; pH 7.29 (7.35-7.45)
[2017-09-03 08:14] LABS: HEMATOCRIT 39.4 % (38.0-50.0); HEMOGLOBIN 11.8 G/DL (12.5-16.6); MCH 29.9 PG (29.0-34.0); MCHC 29.9 G/DL (30.0-36.0); NRBC (%) 1.7 /100 WBC (0-0); RBC DIS.WIDTH-CV 13.3 % (11.8-14.6); RBC DIS.WIDTH-SD 49.3 % (39-53); RED BLOOD COUNT 3.94 M/uL (4.00-5.50); WHITE BLOOD COUNT 23.6 K/uL (4.1-10.2)
[2017-09-03 08:35] LABS: CHLORIDE 99 MEQ/L (99-109); MAGNESIUM 2.9 mg/dl (1.3-2.7); POTASSIUM 5.6 MEQ/L (3.7-5.4); SODIUM 143 MEQ/L (136-147)
[2017-09-03 08:40] LABS: CREATININE 0.8 MG/DL (0.6-1.3); GFR ESTIMATE (CALCULATED) > 59 mL/min/ (58.99-99999); GLUCOSE 304 mg/dL (70-99); PHOSPHORUS 4.1 mg/dL (2.5-4.9); UREA NITROGEN (BUN) 75 mg/dL (9-23)
[2017-09-03 08:57] LABS: PLATELET CLUMPS PRESENT - PLATELET COUNT APPEARS ADQ.
[2017-09-03 08:58] LABS: PLATELET COUNT UNABLE TO REPORT K/uL (156-360)
[2017-09-04] VITALS (23 sets, daily range): BP systolic 100–143; BP diastolic 68–87
[2017-09-04 08:16] LABS: HEMATOCRIT 38.6 % (38.0-50.0); MCH 30.8 PG (29.0-34.0); MCHC 31.1 G/DL (30.0-36.0); MCV 99.2 FL (86-99); PLATELET COUNT 244 K/uL (156-360); RBC DIS.WIDTH-CV 13.6 % (11.8-14.6); RBC DIS.WIDTH-SD 49.7 % (39-53); RED BLOOD COUNT 3.89 M/uL (4.00-5.50); WHITE BLOOD COUNT 28.6 K/uL (4.1-10.2)
[2017-09-04 08:24] LABS: BASE EXCESS 21.2 mEq/L (-3 to +3); CARBOXY HGB 2.7 % (0-5); METHEMOGLOBIN 2.4 % (0-1.5); PCO2 84 mm Hg (35-45); PO2 64 mm Hg (80-100); pH 7.39 (7.35-7.45)
[2017-09-04 08:25] LABS: BICARBONATE 50.8 mEq/L (22-26); COMMENTS - BLOOD GASES A+C+; DEVICE 840; FI02 30 %; MECHANICAL RATE 30 resp/min; MODE A/C PC; PEEP 5 CM/H20; PRESSURE CONTROL VENTILATION 35 CM H20; SITE LR; TOTAL RESP RATE 30 resp/min
[2017-09-04 08:42] LABS: CHLORIDE 94 MEQ/L (99-109); CREATININE 0.8 MG/DL (0.6-1.3); GFR ESTIMATE (CALCULATED) > 59 mL/min/ (58.99-99999); GLUCOSE 305 mg/dL (70-99); MAGNESIUM 3.2 mg/dl (1.3-2.7); PHOSPHORUS 3.2 mg/dL (2.5-4.9); POTASSIUM 5.5 MEQ/L (3.7-5.4); SODIUM 142 MEQ/L (136-147); UREA NITROGEN (BUN) 80 mg/dL (9-23)
[2017-09-04 08:44] LABS: CARBON DIOXIDE (BICARBONATE) > 40.0 MEQ/L (20-31)
[2017-09-05] VITALS (24 sets, daily range): BP systolic 104–185; BP diastolic 64–97
[2017-09-05 05:48] LABS: BASE EXCESS 23.2 mEq/L (-3 to +3); BICARBONATE 52.5 mEq/L (22-26); CARBOXY HGB 2.3 % (0-5); METHEMOGLOBIN 2.6 % (0-1.5); PCO2 81 mm Hg (35-45); pH 7.42 (7.35-7.45)
[2017-09-05 05:49] LABS: COMMENTS - BLOOD GASES C+; DEVICE VENT; FI02 40 %; MECHANICAL RATE 30 resp/min; MODE A/C PC; PEEP 5 CM/H20; PO2 84 mm Hg (80-100); PRESSURE CONTROL VENTILATION 35 CM H20; SITE RR; TOTAL RESP RATE 30 resp/min
[2017-09-05 06:57] LABS: CHLORIDE 90 MEQ/L (99-109); CREATININE 0.8 MG/DL (0.6-1.3); GFR ESTIMATE (CALCULATED) > 59 mL/min/ (58.99-99999); GLUCOSE 231 mg/dL (70-99); SODIUM 143 MEQ/L (136-147); UREA NITROGEN (BUN) 84 mg/dL (9-23)
[2017-09-05 07:01] LABS: CARBON DIOXIDE (BICARBONATE) > 40.0 MEQ/L (20-31)
[2017-09-05 07:07] LABS: HEMATOCRIT 38.2 % (38.0-50.0); HEMOGLOBIN 11.9 G/DL (12.5-16.6); MCH 30.6 PG (29.0-34.0); MCHC 31.2 G/DL (30.0-36.0); MCV 98.2 FL (86-99); NRBC (%) 1.9 /100 WBC (0-0); PLATELET COUNT 264 K/uL (156-360); RBC DIS.WIDTH-CV 13.9 % (11.8-14.6); RBC DIS.WIDTH-SD 49.3 % (39-53); RED BLOOD COUNT 3.89 M/uL (4.00-5.50)
[2017-09-05 07:30] LABS: WHITE BLOOD COUNT 33.5 K/uL (4.1-10.2)
[2017-09-05 07:34] LABS: ABS NEUTROPHIL COUNT 30.8; ATYPICAL LYMPHOCYTE 1.8 %; BAND NEUTROPHILS 1.8 % (0-8.0); EOSINOPHIL ABS CT 0; HEMATOLOGY COMMENT 1 SMEAR COMPATIBLE; LYMPHOCYTES 0.9 % (15.0-45.0); METAMYELOCYTES 0.9 %; MONOCYTES 1.8 % (0-9.0); MYELOCYTES 2.7 %; NUCLEATED RBC'S 2.7; PLAT.SUFFICIENCY ADEQUATE; POIKILOCYTOSIS 1+; POLYCHROMASIA 1+; SEG.NEUTROPHILS 90.1 % (46.0-76.0)
[2017-09-05 19:22] LABS: PTT 25.1 SEC (25-37)
[2017-09-06] VITALS (21 sets, daily range): BP systolic 110–164; BP diastolic 66–86
[2017-09-06 05:39] LABS: BASOPHIL (%) 0.3 % (0-1); BASOPHIL COUNT 0.1 K/uL (0-0.1); EOSINOPHIL (%) 0 % (0-5); HEMATOCRIT 34.7 % (38.0-50.0); HEMOGLOBIN 10.8 G/DL (12.5-16.6); LYMPHOCYTE (%) 1.3 % (15-42); LYMPHOCYTE COUNT 0.4 K/uL (1.0-2.8); MCH 30.1 PG (29.0-34.0); MCHC 31.1 G/DL (30.0-36.0); MCV 96.7 FL (86-99); MONOCYTE (%) 5.1 % (3-12); MONOCYTE COUNT 1.4 K/uL (0-0.8); NEUTROPHIL (%) 89.3 % (45-76); NEUTROPHIL COUNT 25.1 K/uL (1.8-6.4); NRBC (%) 1.1 /100 WBC (0-0); PLATELET COUNT 223 K/uL (156-360); RBC DIS.WIDTH-SD 49.7 % (39-53); RED BLOOD COUNT 3.59 M/uL (4.00-5.50); WHITE BLOOD COUNT 28.2 K/uL (4.1-10.2)
[2017-09-06 06:15] LABS: CARBON DIOXIDE (BICARBONATE) > 40.0 MEQ/L (20-31); CHLORIDE 92 MEQ/L (99-109); CREATININE 0.6 MG/DL (0.6-1.3); GFR ESTIMATE (CALCULATED) > 59 mL/min/ (58.99-99999); GLUCOSE 224 mg/dL (70-99); MAGNESIUM 3.1 mg/dl (1.3-2.7); PHOSPHORUS 4.3 mg/dL (2.5-4.9); POTASSIUM 4.6 MEQ/L (3.7-5.4); SODIUM 146 MEQ/L (136-147); UREA NITROGEN (BUN) 72 mg/dL (9-23)
[2017-09-06 08:23] LABS: BASE EXCESS 29.3 mEq/L (-3 to +3); CARBOXY HGB 1.8 % (0-5); METHEMOGLOBIN 1.9 % (0-1.5)
[2017-09-06 08:25] LABS: COMMENTS - BLOOD GASES A+C+; DEVICE 840; FI02 40 %; MECHANICAL RATE 30 resp/min; MODE A/C PC; PCO2 64 mm Hg (35-45); PEEP 5 CM/H20; PO2 211 mm Hg (80-100); PRESSURE CONTROL VENTILATION 35 CM H20; SITE RR; TOTAL RESP RATE 30 resp/min; pH 7.55 (7.35-7.45)
[2017-09-07] VITALS (13 sets, daily range): BP systolic 103–147; BP diastolic 65–79
[2017-09-07 05:30] LABS: BASE EXCESS 24.6 mEq/L (-3 to +3); BICARBONATE 49.1 mEq/L (22-26); CARBOXY HGB 2.2 % (0-5); COMMENTS - BLOOD GASES A+C+; DEVICE VENT; FI02 40 %; MECHANICAL RATE 24 resp/min; METHEMOGLOBIN 2.2 % (0-1.5); MODE PC; PCO2 50 mm Hg (35-45); PO2 73 mm Hg (80-100); SITE RR
[2017-09-07 05:31] LABS: CONTINUOUS POS AIRWAY PRESSURE 5 cm H2O; PRESSURE CONTROL VENTILATION 35 CM H20
[2017-09-07 06:58] LABS: BASOPHIL (%) 0.2 % (0-1); EOSINOPHIL (%) 0 % (0-5); HEMATOCRIT 32.1 % (38.0-50.0); HEMOGLOBIN 10.3 G/DL (12.5-16.6); IMMATURE GRANULOCYTE (%) 2.3 % (0.0-0.7); LYMPHOCYTE (%) 1.4 % (15-42); LYMPHOCYTE COUNT 0.3 K/uL (1.0-2.8); MCH 30.3 PG (29.0-34.0); MCHC 32.1 G/DL (30.0-36.0); MCV 94.4 FL (86-99); MONOCYTE (%) 4.9 % (3-12); MONOCYTE COUNT 1.2 K/uL (0-0.8); NEUTROPHIL (%) 91.2 % (45-76); NEUTROPHIL COUNT 21.8 K/uL (1.8-6.4); NRBC (%) 0.5 /100 WBC (0-0); PLATELET COUNT 197 K/uL (156-360); RBC DIS.WIDTH-CV 14.2 % (11.8-14.6); RBC DIS.WIDTH-SD 48.7 % (39-53); WHITE BLOOD COUNT 23.9 K/uL (4.1-10.2)
[2017-09-07 07:38] LABS: CHLORIDE 99 MEQ/L (99-109); CREATININE 0.6 MG/DL (0.6-1.3); GFR ESTIMATE (CALCULATED) > 59 mL/min/ (58.99-99999); GLUCOSE 158 mg/dL (70-99); PHOSPHORUS 4.8 mg/dL (2.5-4.9); POTASSIUM 4.6 MEQ/L (3.7-5.4); SODIUM 147 MEQ/L (136-147); UREA NITROGEN (BUN) 61 mg/dL (9-23)
[2017-09-07 07:41] LABS: CARBON DIOXIDE (BICARBONATE) > 40.0 MEQ/L (20-31); MAGNESIUM 2.5 mg/dl (1.3-2.7)
[2017-09-08] VITALS (24 sets, daily range): BP systolic 94–158; BP diastolic 68–85
[2017-09-08 10:32] LABS: BASE EXCESS 19.8 mEq/L (-3 to +3); BICARBONATE 44.1 mEq/L (22-26); CARBOXY HGB 2.4 % (0-5); METHEMOGLOBIN 1.9 % (0-1.5); PCO2 47 mm Hg (35-45); PO2 95 mm Hg (80-100); pH 7.58 (7.35-7.45)
[2017-09-08 10:33] LABS: COMMENTS - BLOOD GASES A+C+; DEVICE 840 PB; FI02 40 %; INSPIRATION TIME 0.7 seconds; MECHANICAL RATE 24 resp/min; MODE AC PC; PRESSURE CONTROL VENTILATION 35 CM H20; SITE LR; TOTAL RESP RATE 24 resp/min
[2017-09-08 10:34] LABS: PEEP 5 CM/H20
[2017-09-09] VITALS (17 sets, daily range): BP systolic 104–162; BP diastolic 68–90
[2017-09-09 06:08] LABS: CHLORIDE 96 MEQ/L (99-109); CREATININE 0.5 MG/DL (0.6-1.3); GFR ESTIMATE (CALCULATED) > 59 mL/min/ (58.99-99999); GLUCOSE 226 mg/dL (70-99); POTASSIUM 3.9 MEQ/L (3.7-5.4); SODIUM 144 MEQ/L (136-147); UREA NITROGEN (BUN) 56 mg/dL (9-23)
[2017-09-09 06:18] LABS: BASOPHIL (%) 0.2 % (0-1); BASOPHIL COUNT 0.1 K/uL (0-0.1); EOSINOPHIL (%) 0 % (0-5); HEMATOCRIT 35.3 % (38.0-50.0); HEMOGLOBIN 11.3 G/DL (12.5-16.6); IMMATURE GRANULOCYTE (%) 1.5 % (0.0-0.7); LYMPHOCYTE (%) 0.6 % (15-42); LYMPHOCYTE COUNT 0.2 K/uL (1.0-2.8); MCH 30.8 PG (29.0-34.0); MCV 96.2 FL (86-99); MONOCYTE (%) 3.3 % (3-12); MONOCYTE COUNT 0.9 K/uL (0-0.8); NEUTROPHIL (%) 94.4 % (45-76); NEUTROPHIL COUNT 25.8 K/uL (1.8-6.4); PLATELET COUNT 186 K/uL (156-360); RBC DIS.WIDTH-SD 49.2 % (39-53); RED BLOOD COUNT 3.67 M/uL (4.00-5.50); WHITE BLOOD COUNT 27.3 K/uL (4.1-10.2)
[2017-09-10] VITALS (17 sets, daily range): BP systolic 113–159; BP diastolic 68–94
[2017-09-10 11:50] LABS: BASE EXCESS 18.5 mEq/L (-3 to +3); CARBOXY HGB 2.5 % (0-5); METHEMOGLOBIN 2.2 % (0-1.5); PO2 81 mm Hg (80-100)
[2017-09-10 11:52] LABS: COMMENTS - BLOOD GASES A+C+; DEVICE 840; FI02 40 %; MODE TC; PCO2 87 mm Hg (35-45); PEEP 5 CM/H20; SITE RR; pH 7.35 (7.35-7.45)
[2017-09-11] VITALS (15 sets, daily range): BP systolic 107–145; BP diastolic 59–91
[2017-09-11 08:46] LABS: INTER. NORMALIZED RATIO 0.9
[2017-09-11 08:49] LABS: PTT 23.7 SEC (25-37)
[2017-09-11 08:55] LABS: BASOPHIL (%) 0.2 % (0-1); EOSINOPHIL (%) 0.1 % (0-5); HEMATOCRIT 36.5 % (38.0-50.0); HEMOGLOBIN 11.4 G/DL (12.5-16.6); LYMPHOCYTE (%) 3.1 % (15-42); LYMPHOCYTE COUNT 0.8 K/uL (1.0-2.8); MCH 31.3 PG (29.0-34.0); MCHC 31.2 G/DL (30.0-36.0); MONOCYTE (%) 5.2 % (3-12); MONOCYTE COUNT 1.4 K/uL (0-0.8); NEUTROPHIL (%) 90.4 % (45-76); NEUTROPHIL COUNT 24.1 K/uL (1.8-6.4); PLATELET COUNT 184 K/uL (156-360); RBC DIS.WIDTH-CV 13.5 % (11.8-14.6); RED BLOOD COUNT 3.64 M/uL (4.00-5.50); WHITE BLOOD COUNT 26.6 K/uL (4.1-10.2)
[2017-09-11 08:57] LABS: CREATINE KINASE 418 IU/L (1-294); HIGH-SENS C-REACTIVE PROTEIN 0.83 MG/DL (0.02-0.20); VANCOMYCIN, TROUGH 13.7 MCG/ML (10-20)
[2017-09-11 09:01] LABS: MCV 100.3 FL (86-99)
[2017-09-11 09:16] LABS: ALBUMIN 2.9 G/DL (3.2-4.8); ALKALINE PHOSPHATASE 70 IU/L (3-129); ALT (GPT) 68 IU/L (3-49); AST (GOT) 62 IU/L (2-34); CHLORIDE 98 MEQ/L (99-109); CREATININE 0.4 MG/DL (0.6-1.3); GFR ESTIMATE (CALCULATED) > 59 mL/min/ (58.99-99999); POTASSIUM 3.8 MEQ/L (3.7-5.4); SODIUM 144 MEQ/L (136-147); TOTAL BILIRUBIN 0.7 MG/DL (0.0-1.0); TOTAL PROTEIN 5.1 G/DL (6.4-8.3); UREA NITROGEN (BUN) 36 mg/dL (9-23)
[2017-09-11 09:17] LABS: CARBON DIOXIDE (BICARBONATE) > 40.0 MEQ/L (20-31); GLUCOSE 119 mg/dL (70-99); MAGNESIUM 2.1 mg/dl (1.3-2.7); PHOSPHORUS 2.6 mg/dL (2.5-4.9)
[2017-09-11 09:29] LABS: ERTH.SED.RATE 17 MM/HR (0-20)
[2017-09-11 11:52] LABS: BASE EXCESS 22.6 mEq/L (-3 to +3); BICARBONATE 53.4 mEq/L (22-26); METHEMOGLOBIN 2.2 % (0-1.5); PCO2 99 mm Hg (35-45); PO2 86 mm Hg (80-100); SITE RR; pH 7.34 (7.35-7.45)
[2017-09-11 11:53] LABS: DEVICE 840; FI02 40 %; MECHANICAL RATE 8 resp/min; MODE simv; PEEP 5 CM/H20; PRES. SUPPORT 15 CM/H2O; TIDAL VOLUME 450 ML; TOTAL RESP RATE 12 resp/min
[2017-09-12] VITALS (22 sets, daily range): BP systolic 89–172; BP diastolic 53–100
[2017-09-12 05:38] LABS: BASOPHIL (%) 0.1 % (0-1); EOSINOPHIL (%) 0 % (0-5); HEMATOCRIT 30.7 % (38.0-50.0); HEMOGLOBIN 9.5 G/DL (12.5-16.6); IMMATURE GRANULOCYTE (%) 0.8 % (0.0-0.7); LYMPHOCYTE (%) 1.2 % (15-42); LYMPHOCYTE COUNT 0.3 K/uL (1.0-2.8); MCH 30.2 PG (29.0-34.0); MCHC 30.9 G/DL (30.0-36.0); MCV 97.5 FL (86-99); MONOCYTE (%) 3.7 % (3-12); MONOCYTE COUNT 0.8 K/uL (0-0.8); NEUTROPHIL (%) 94.2 % (45-76); PLATELET COUNT 157 K/uL (156-360); RBC DIS.WIDTH-CV 13.1 % (11.8-14.6); RBC DIS.WIDTH-SD 46.5 % (39-53); RED BLOOD COUNT 3.15 M/uL (4.00-5.50); WHITE BLOOD COUNT 21.3 K/uL (4.1-10.2)
[2017-09-12 06:18] LABS: ALBUMIN 3.2 G/DL (3.2-4.8); ALKALINE PHOSPHATASE 69 IU/L (3-129); ALT (GPT) 61 IU/L (3-49); AST (GOT) 45 IU/L (2-34); CHLORIDE 97 MEQ/L (99-109); CREATININE 0.4 MG/DL (0.6-1.3); GFR ESTIMATE (CALCULATED) > 59 mL/min/ (58.99-99999); GLUCOSE 142 mg/dL (70-99); HIGH-SENS C-REACTIVE PROTEIN 6.97 MG/DL (0.02-0.20); MAGNESIUM 1.9 mg/dl (1.3-2.7); PHOSPHORUS 2.8 mg/dL (2.5-4.9); POTASSIUM 3.9 MEQ/L (3.7-5.4); SODIUM 143 MEQ/L (136-147); TOTAL BILIRUBIN 0.7 MG/DL (0.0-1.0); TOTAL PROTEIN 4.7 G/DL (6.4-8.3); UREA NITROGEN (BUN) 36 mg/dL (9-23)
[2017-09-12 16:54] LABS: CSF PROTEIN 44 mg/dL (15-45)
[2017-09-12 17:00] LABS: CSF LACTIC ACID 1.2 mmol/L (0.6-2.2); CSF LDH 35 IU/L; GLUCOSE, CSF 102 mg/dL (40-80)
[2017-09-12 17:18] LABS: IMMUNOGLOBULIN G 415 MG/DL (650-1600); IMMUNOGLOBULIN M 44 MG/DL (50-300)
[2017-09-12 17:23] LABS: APPEARANCE CLEAR/COLORLESS; CSF EOSINOPHILS 0 % (0-25); CSF TUBE NUMBER TUBE #4; MONONUCLEAR WBC'S 100 % (50-90); POLYNUCLEAR WBC'S 0 % (0-3); RED CELL COUNT 0 /MM^3 (0-1); WHITE CELL COUNT 2 /MM^3 (0-5)
[2017-09-13] VITALS (16 sets, daily range): BP systolic 97–164; BP diastolic 59–114
[2017-09-13 05:47] LABS: BASOPHIL (%) 0.1 % (0-1); EOSINOPHIL (%) 0 % (0-5); HEMATOCRIT 28.9 % (38.0-50.0); IMMATURE GRANULOCYTE (%) 0.8 % (0.0-0.7); LYMPHOCYTE (%) 1.6 % (15-42); LYMPHOCYTE COUNT 0.3 K/uL (1.0-2.8); MCH 30.1 PG (29.0-34.0); MCHC 31.1 G/DL (30.0-36.0); MCV 96.7 FL (86-99); MONOCYTE COUNT 0.5 K/uL (0-0.8); NEUTROPHIL (%) 94.5 % (45-76); NEUTROPHIL COUNT 15.8 K/uL (1.8-6.4); PLATELET COUNT 146 K/uL (156-360); RBC DIS.WIDTH-CV 13.2 % (11.8-14.6); RBC DIS.WIDTH-SD 46.5 % (39-53); RED BLOOD COUNT 2.99 M/uL (4.00-5.50); WHITE BLOOD COUNT 16.8 K/uL (4.1-10.2)
[2017-09-13 06:17] LABS: ALBUMIN 3.4 G/DL (3.2-4.8); ALKALINE PHOSPHATASE 63 IU/L (3-129); ALT (GPT) 58 IU/L (3-49); AST (GOT) 34 IU/L (2-34); CHLORIDE 98 MEQ/L (99-109); CREATININE 0.3 MG/DL (0.6-1.3); GFR ESTIMATE (CALCULATED) > 59 mL/min/ (58.99-99999); GLUCOSE 160 mg/dL (70-99); MAGNESIUM 1.9 mg/dl (1.3-2.7); PHOSPHORUS 2.7 mg/dL (2.5-4.9); SODIUM 144 MEQ/L (136-147); TOTAL BILIRUBIN 0.8 MG/DL (0.0-1.0); UREA NITROGEN (BUN) 35 mg/dL (9-23)
[2017-09-13 06:18] LABS: CARBON DIOXIDE (BICARBONATE) > 40.0 MEQ/L (20-31)
[2017-09-13 10:19] LABS: PTT 25.2 SEC (25-37)
[2017-09-13 12:45] LABS: COMMENTS - BLOOD GASES A+C+; DEVICE VENT; FI02 40 %; MECHANICAL RATE 16 resp/min; MODE ACVC; PCO2 75 mm Hg (35-45); PO2 133 mm Hg (80-100); PRES. SUPPORT 5 CM/H2O; SITE RR; TIDAL VOLUME 500 ML; TOTAL RESP RATE 16 resp/min; pH 7.32 (7.35-7.45)
[2017-09-13 12:46] LABS: BASE EXCESS 10.2 mEq/L (-3 to +3); BICARBONATE 38.6 mEq/L (22-26); CARBOXY HGB 2.3 % (0-5)
[2017-09-13 17:27] LABS: PROCALCITONIN+ 0.21 ng/mL (<0.10)
[2017-09-14] VITALS (15 sets, daily range): BP systolic 100–142; BP diastolic 62–84
[2017-09-14 07:28] LABS: BASOPHIL (%) 0.1 % (0-1); EOSINOPHIL (%) 0 % (0-5); HEMOGLOBIN 10.4 G/DL (12.5-16.6); IMMATURE GRANULOCYTE (%) 0.7 % (0.0-0.7); LYMPHOCYTE (%) 2.3 % (15-42); LYMPHOCYTE COUNT 0.5 K/uL (1.0-2.8); MCH 29.8 PG (29.0-34.0); MCHC 30.6 G/DL (30.0-36.0); MCV 97.4 FL (86-99); MONOCYTE (%) 4.1 % (3-12); MONOCYTE COUNT 0.9 K/uL (0-0.8); NEUTROPHIL (%) 92.8 % (45-76); NEUTROPHIL COUNT 19.5 K/uL (1.8-6.4); RBC DIS.WIDTH-CV 13.2 % (11.8-14.6); RBC DIS.WIDTH-SD 46.5 % (39-53); RED BLOOD COUNT 3.49 M/uL (4.00-5.50)
[2017-09-14 07:37] LABS: PLATELET COUNT 198 K/uL (156-360)
[2017-09-14 07:55] LABS: ALBUMIN 3.6 G/DL (3.2-4.8); ALKALINE PHOSPHATASE 88 IU/L (3-129); ALT (GPT) 61 IU/L (3-49); AST (GOT) 29 IU/L (2-34); CHLORIDE 104 MEQ/L (99-109); CREATININE 0.4 MG/DL (0.6-1.3); GFR ESTIMATE (CALCULATED) > 59 mL/min/ (58.99-99999); GLUCOSE 163 mg/dL (70-99); MAGNESIUM 1.9 mg/dl (1.3-2.7); PHOSPHORUS 2.5 mg/dL (2.5-4.9); POTASSIUM 3.7 MEQ/L (3.7-5.4); SODIUM 143 MEQ/L (136-147); TOTAL BILIRUBIN 0.5 MG/DL (0.0-1.0); TOTAL PROTEIN 5.4 G/DL (6.4-8.3); UREA NITROGEN (BUN) 32 mg/dL (9-23)
[2017-09-14 13:24] LABS: HIGH-SENS C-REACTIVE PROTEIN 2.03 MG/DL (0.02-0.20)
[2017-09-14 18:53] LABS: ACETYLCHOLINE RECP BIND ABY+ <0.30 nmol/L (<=0.30)
[2017-09-15] VITALS (12 sets, daily range): BP systolic 102–142; BP diastolic 68–93
[2017-09-15 07:47] LABS: BASOPHIL (%) 0.1 % (0-1); EOSINOPHIL (%) 0 % (0-5); HEMATOCRIT 30.8 % (38.0-50.0); HEMOGLOBIN 9.7 G/DL (12.5-16.6); IMMATURE GRANULOCYTE (%) 0.6 % (0.0-0.7); LYMPHOCYTE (%) 3.3 % (15-42); LYMPHOCYTE COUNT 0.6 K/uL (1.0-2.8); MCH 30.7 PG (29.0-34.0); MCHC 31.5 G/DL (30.0-36.0); MCV 97.5 FL (86-99); MONOCYTE (%) 4.4 % (3-12); MONOCYTE COUNT 0.8 K/uL (0-0.8); NEUTROPHIL (%) 91.6 % (45-76); NEUTROPHIL COUNT 17.3 K/uL (1.8-6.4); PLATELET COUNT 171 K/uL (156-360); RBC DIS.WIDTH-CV 13.2 % (11.8-14.6); RBC DIS.WIDTH-SD 47.8 % (39-53); RED BLOOD COUNT 3.16 M/uL (4.00-5.50); WHITE BLOOD COUNT 18.9 K/uL (4.1-10.2)
[2017-09-15 08:12] LABS: ALBUMIN 3.6 G/DL (3.2-4.8); ALKALINE PHOSPHATASE 74 IU/L (3-129); ALT (GPT) 49 IU/L (3-49); AST (GOT) 22 IU/L (2-34); CHLORIDE 104 MEQ/L (99-109); CREATININE 0.4 MG/DL (0.6-1.3); GFR ESTIMATE (CALCULATED) > 59 mL/min/ (58.99-99999); GLUCOSE 133 mg/dL (70-99); MAGNESIUM 1.9 mg/dl (1.3-2.7); PHOSPHORUS 2.2 mg/dL (2.5-4.9); POTASSIUM 3.7 MEQ/L (3.7-5.4); SODIUM 140 MEQ/L (136-147); TOTAL BILIRUBIN 0.7 MG/DL (0.0-1.0); TOTAL PROTEIN 5.2 G/DL (6.4-8.3); UREA NITROGEN (BUN) 29 mg/dL (9-23)
[2017-09-15 17:57] LABS: PROCALCITONIN+ 0.17 ng/mL (<0.10)
[2017-09-15 22:16] LABS: Albumin, CSF 20.2 mg/dL (8.0-42.0); Albumin, Serum 2.9 g/dL (3.5-4.9); IgG Index, CSF 0.54 index (<0.66); IgG, CSF 1.5 mg/dL (0.8-7.7); Synthesis Rate IgG, CSF -0.2 mg/24 h (-9.9-3.3)
[2017-09-16] VITALS (13 sets, daily range): BP systolic 93–133; BP diastolic 63–82
[2017-09-16 07:18] LABS: BASOPHIL (%) 0.1 % (0-1); EOSINOPHIL (%) 0.1 % (0-5); HEMOGLOBIN 9.9 G/DL (12.5-16.6); IMMATURE GRANULOCYTE (%) 0.5 % (0.0-0.7); LYMPHOCYTE (%) 4.1 % (15-42); LYMPHOCYTE COUNT 0.6 K/uL (1.0-2.8); MCH 30.7 PG (29.0-34.0); MCHC 31.9 G/DL (30.0-36.0); MCV 96.3 FL (86-99); MONOCYTE (%) 3.8 % (3-12); MONOCYTE COUNT 0.6 K/uL (0-0.8); NEUTROPHIL (%) 91.4 % (45-76); NEUTROPHIL COUNT 14.4 K/uL (1.8-6.4); PLATELET COUNT 166 K/uL (156-360); RBC DIS.WIDTH-CV 13.4 % (11.8-14.6); RBC DIS.WIDTH-SD 47.3 % (39-53); RED BLOOD COUNT 3.22 M/uL (4.00-5.50); WHITE BLOOD COUNT 15.8 K/uL (4.1-10.2)
[2017-09-16 07:43] LABS: ALBUMIN 3.5 G/DL (3.2-4.8); ALKALINE PHOSPHATASE 65 IU/L (3-129); ALT (GPT) 45 IU/L (3-49); AST (GOT) 19 IU/L (2-34); CHLORIDE 101 MEQ/L (99-109); CREATININE 0.3 MG/DL (0.6-1.3); GFR ESTIMATE (CALCULATED) > 59 mL/min/ (58.99-99999); GLUCOSE 142 mg/dL (70-99); MAGNESIUM 1.8 mg/dl (1.3-2.7); PHOSPHORUS 2.3 mg/dL (2.5-4.9); SODIUM 142 MEQ/L (136-147); TOTAL BILIRUBIN 0.7 MG/DL (0.0-1.0); TOTAL PROTEIN 5.1 G/DL (6.4-8.3); UREA NITROGEN (BUN) 24 mg/dL (9-23)
[2017-09-17] VITALS (15 sets, daily range): BP systolic 94–140; BP diastolic 63–86
[2017-09-17 07:05] LABS: BASOPHIL (%) 0.1 % (0-1); EOSINOPHIL (%) 0 % (0-5); HEMATOCRIT 29.7 % (38.0-50.0); HEMOGLOBIN 9.6 G/DL (12.5-16.6); IMMATURE GRANULOCYTE (%) 0.4 % (0.0-0.7); LYMPHOCYTE (%) 2.8 % (15-42); LYMPHOCYTE COUNT 0.5 K/uL (1.0-2.8); MCH 30.8 PG (29.0-34.0); MCHC 32.3 G/DL (30.0-36.0); MCV 95.2 FL (86-99); MONOCYTE (%) 3.2 % (3-12); MONOCYTE COUNT 0.5 K/uL (0-0.8); NEUTROPHIL (%) 93.5 % (45-76); PLATELET COUNT 164 K/uL (156-360); RBC DIS.WIDTH-CV 13.4 % (11.8-14.6); RBC DIS.WIDTH-SD 45.8 % (39-53); RED BLOOD COUNT 3.12 M/uL (4.00-5.50); WHITE BLOOD COUNT 17.1 K/uL (4.1-10.2)
[2017-09-17 07:32] LABS: ALBUMIN 3.2 G/DL (3.2-4.8); ALKALINE PHOSPHATASE 70 IU/L (3-129); ALT (GPT) 38 IU/L (3-49); AST (GOT) 17 IU/L (2-34); CHLORIDE 104 MEQ/L (99-109); CREATININE 0.3 MG/DL (0.6-1.3); GFR ESTIMATE (CALCULATED) > 59 mL/min/ (58.99-99999); GLUCOSE 161 mg/dL (70-99); MAGNESIUM 1.9 mg/dl (1.3-2.7); PHOSPHORUS 2.5 mg/dL (2.5-4.9); POTASSIUM 4.2 MEQ/L (3.7-5.4); SODIUM 140 MEQ/L (136-147); TOTAL BILIRUBIN 0.8 MG/DL (0.0-1.0); TOTAL PROTEIN 4.8 G/DL (6.4-8.3); UREA NITROGEN (BUN) 22 mg/dL (9-23)
[2017-09-18] VITALS (12 sets, daily range): BP systolic 90–132; BP diastolic 65–81
[2017-09-18 05:41] LABS: HEMOGLOBIN 10.1 G/DL (12.5-16.6); MCH 30.9 PG (29.0-34.0); MCHC 32.6 G/DL (30.0-36.0); MCV 94.8 FL (86-99); PLATELET COUNT 177 K/uL (156-360); RBC DIS.WIDTH-CV 13.6 % (11.8-14.6); RBC DIS.WIDTH-SD 46.9 % (39-53); RED BLOOD COUNT 3.27 M/uL (4.00-5.50); WHITE BLOOD COUNT 15.9 K/uL (4.1-10.2)
[2017-09-18 06:06] LABS: CHLORIDE 102 MEQ/L (99-109); CREATININE 0.4 MG/DL (0.6-1.3); GFR ESTIMATE (CALCULATED) > 59 mL/min/ (58.99-99999); GLUCOSE 152 mg/dL (70-99); POTASSIUM 4.4 MEQ/L (3.7-5.4); SODIUM 141 MEQ/L (136-147); UREA NITROGEN (BUN) 25 mg/dL (9-23)
[2017-09-18 08:19] LABS: THYROTROPIN (TSH) 1.2 MIU/L (0.4-5.5)
[2017-09-18 12:39] LABS: BASE EXCESS 9.2 mEq/L (-3 to +3); BICARBONATE 34.6 mEq/L (22-26); CARBOXY HGB 3.4 % (0-5); METHEMOGLOBIN 1.5 % (0-1.5)
[2017-09-18 12:40] LABS: COMMENTS - BLOOD GASES A+C+; DEVICE VENT; FI02 30 %; MODE SPONT PS; PCO2 51 mm Hg (35-45); PEEP 5 CM/H20; PO2 85 mm Hg (80-100); PRES. SUPPORT 10 CM/H2O; pH 7.44 (7.35-7.45)
[2017-09-19] VITALS (10 sets, daily range): BP systolic 93–124; BP diastolic 67–87
[2017-09-20] VITALS (12 sets, daily range): BP systolic 87–148; BP diastolic 62–90
[2017-09-20 05:42] LABS: HEMATOCRIT 30.8 % (38.0-50.0); HEMOGLOBIN 9.9 G/DL (12.5-16.6); MCH 30.6 PG (29.0-34.0); MCHC 32.1 G/DL (30.0-36.0); MCV 95.1 FL (86-99); PLATELET COUNT 170 K/uL (156-360); RBC DIS.WIDTH-CV 14.1 % (11.8-14.6); RBC DIS.WIDTH-SD 48.4 % (39-53); RED BLOOD COUNT 3.24 M/uL (4.00-5.50); WHITE BLOOD COUNT 10.8 K/uL (4.1-10.2)
[2017-09-20 06:10] LABS: CHLORIDE 95 MEQ/L (99-109); CREATININE 0.4 MG/DL (0.6-1.3); GFR ESTIMATE (CALCULATED) > 59 mL/min/ (58.99-99999); GLUCOSE 182 mg/dL (70-99); MAGNESIUM 1.9 mg/dl (1.3-2.7); POTASSIUM 4.6 MEQ/L (3.7-5.4); SODIUM 138 MEQ/L (136-147); UREA NITROGEN (BUN) 26 mg/dL (9-23)
[2017-09-20 06:11] LABS: PHOSPHORUS 3.7 mg/dL (2.5-4.9)
[2017-09-20 22:05] LABS: APPEARANCE CLOUDY ((CLEAR)); BILIRUBIN NEGATIVE; BLOOD LARGE; GLUCOSE (STRIP) NEGATIVE; KETONES NEGATIVE; LEUKOCYTES TRACE; NITRITE NEGATIVE; PROTEIN (STRIP) 100; SPECIFIC GRAVITY 1.015 (1.000-1.030)
[2017-09-20 22:31] LABS: BACTERIA NONE SEEN /HPF; EPITHELIAL CELLS NONE SEEN /HPF; MUCUS NONE SEEN /LPF; RED BLOOD CELLS TNTC /HPF (0-5); UCUL ADDED? YES; WHITE BLOOD CELLS 0-5 /HPF (0-5)
[2017-09-20 22:36] LABS: COLOR BLOODY ((YELLOW))
[2017-09-21] VITALS (13 sets, daily range): BP systolic 89–160; BP diastolic 60–106
[2017-09-22] VITALS (15 sets, daily range): BP systolic 87–159; BP diastolic 53–128
[2017-09-22 05:53] LABS: BASOPHIL (%) 0.1 % (0-1); EOSINOPHIL (%) 0 % (0-5); HEMATOCRIT 33.5 % (38.0-50.0); HEMOGLOBIN 10.7 G/DL (12.5-16.6); IMMATURE GRANULOCYTE (%) 0.9 % (0.0-0.7); LYMPHOCYTE (%) 8.3 % (15-42); LYMPHOCYTE COUNT 1.1 K/uL (1.0-2.8); MCHC 31.9 G/DL (30.0-36.0); MCV 97.1 FL (86-99); MONOCYTE (%) 5.1 % (3-12); MONOCYTE COUNT 0.7 K/uL (0-0.8); NEUTROPHIL (%) 85.6 % (45-76); NEUTROPHIL COUNT 11.1 K/uL (1.8-6.4); PLATELET COUNT 167 K/uL (156-360); RBC DIS.WIDTH-CV 14.2 % (11.8-14.6); RBC DIS.WIDTH-SD 49.8 % (39-53); RED BLOOD COUNT 3.45 M/uL (4.00-5.50); WHITE BLOOD COUNT 12.9 K/uL (4.1-10.2)
[2017-09-22 07:19] LABS: CHLORIDE 96 MEQ/L (99-109); CREATININE 0.3 MG/DL (0.6-1.3); GFR ESTIMATE (CALCULATED) > 59 mL/min/ (58.99-99999); GLUCOSE 127 mg/dL (70-99); PHOSPHORUS 4.2 mg/dL (2.5-4.9); SODIUM 139 MEQ/L (136-147); UREA NITROGEN (BUN) 26 mg/dL (9-23)
[2017-09-22] MEDS ORDERED: LOVENOX40 MG/0.4 SC (10:49)
[2017-09-22] MEDS ORDERED: CORDARONE200 MG GT (10:50)
[2017-09-22] MEDS ORDERED: LOPRESSOR100 M1 GT (10:50)
[2017-09-22] MEDS ORDERED: SOLU-MEDRO40 MG/1 ML IV (10:52)
[2017-09-22] MEDS ORDERED: FAMOTIDINE20 MG GT (10:52)
[2017-09-22] MEDS ORDERED: LEVEMIR100 UNIT/2 SC (10:52)
[2017-09-22] MEDS ORDERED: MYCOSTATIN15 GM TP (10:53)
== END 2017-09-22 14:40 | DRG 4 ==
LOC: EME → EDBD 20:08 → EDOF 23:57 → 4WEST 23:57 → ENRESERV 08-26 → 4WEST 08-26 01:02 → ENRESERV 08-26 21:35 → 4WEST 08-26 21:42 → ENRESERV 08-27 00:02 → CANRESERV 08-27 12:24 → 4WEST 08-27 13:36 → ENRESERV 08-27 23:04 → CANRESERV 08-27 23:17 → ENRESERV 08-27 23:17 → 4WEST 08-28 05:01
PROVIDERS: Emergency Medicine; Internal Medicine; Internal Medicine Critical Care Medicine; Internal Medicine Infectious Disease; Obstetrics & Gynecology; Specialist; Surgery
DX: A41.9 Sepsis, unspecified organism (principal); J15.212 Pneumonia due to Methicillin resistant Staphylococcus aureus; G72.81 Critical illness myopathy; J44.1 Chronic obstructive pulmonary disease with (acute) exacerbation; J96.21 Acute and chronic respiratory failure with hypoxia; J44.0 Chronic obstructive pulmonary disease with (acute) lower respiratory infection; J96.22 Acute and chronic respiratory failure with hypercapnia; I47.1 Supraventricular tachycardia; J45.21 Mild intermittent asthma with (acute) exacerbation; R60.1 Generalized edema; I27.20 Pulmonary hypertension, unspecified; J20.9 Acute bronchitis, unspecified; K21.9 Gastro-esophageal reflux disease without esophagitis; R73.9 Hyperglycemia, unspecified; I48.1 Persistent atrial fibrillation; E87.4 Mixed disorder of acid-base balance; F32.9 Major depressive disorder, single episode, unspecified; N19 Unspecified kidney failure; I48.92 Unspecified atrial flutter; G62.9 Polyneuropathy, unspecified; B95.62 Methicillin resistant Staphylococcus aureus infection as the cause of diseases classified elsewhere; E87.5 Hyperkalemia; D71 Functional disorders of polymorphonuclear neutrophils; F41.9 Anxiety disorder, unspecified; Z99.81 Dependence on supplemental oxygen; Z87.891 Personal history of nicotine dependence; Z87.01 Personal history of pneumonia (recurrent); Z82.5 Family history of asthma and other chronic lower respiratory diseases; Z80.1 Family history of malignant neoplasm of trachea, bronchus and lung
CPT/HCPCS: 36600; 62270; 70491; 70553; 71045; 71046; 71275; 72156; 74018; 76937; 77003; 80048; 80048 91; 80053; 80170; 80198; 80202; 81003; 82040 90; 82042 90; 82103 90; 82308 90; 82550; 82784; 82784 90; 82787 90; 82803; 82945; 82948; 83605; 83615 91; 83735; 84100; 84132 91; 84145 90; 84157; 84238 90; 84443; 84484; 84999; 85025; 85025 91; 85027; 85610; 85652; 85730; 86141; 86592 90; 87040; 87070; 87076; 87077; 87086; 87147; 87185; 87186; 87205; 87252 90; 87502; 87641; 87801; 89051; 93005; 93306; 93312; 93970; 94002; 94003; 94640; 94640 76; 94644; 94760; 94799; 97530 GO; 97530 GP; 99202; 99281; 99285; C1769; J0131; J0153; J0295; J0360; J1100; J1120; J1160; J1200; J1580; J1650; J1815; J1940; J1956; J2060; J2250; J2270; J2704; J2920; J2930; J3010; J3370; J7030; J7040; J7050; J7070; J7120; J7512; J7644; P9047; S0028

== ENCOUNTER 2018-02-02 03:55 | Inpatient (IN) | payer OTHER ==
[~2018-02-02] VITALS: Ht 170.2 cm; Wt 69.7 kg
[2018-02-02] VITALS (25 sets, daily range): BP systolic 74–129; BP diastolic 48–91
[~2018-02-02 03:55] MED LIST changes: +BREO ELLIPTA I1 EACH IH; +CORDARONE200 MG GT; +FAMOTIDINE20 MG GT; +LEVEMIR100 UNIT/2 SC; +LOPRESSOR100 M1 GT; +LOVENOX40 MG/0.4 SC; +MYCOSTATIN15 GM TP; +SOLU-MEDRO40 MG/1 ML IV; +TUMS500 MG PO
[2018-02-02 04:13] LABS: CARBOXY HGB 2.8 % (0-5); COMMENTS - BLOOD GASES C+A+; DEVICE NC; METHEMOGLOBIN 1.5 % (0-1.5); O2 FLOW 4 L/MIN; O2 SATURATION (CALCULATED) 98.6 % (95-99); PCO2 > 124 mm Hg (35-45); PO2 89 mm Hg (80-100); SITE LR; TOTAL RESP RATE 18 resp/min; pH 7.21 (7.35-7.45)
[2018-02-02 04:42] LABS: HEMATOCRIT 38.7 % (38.0-50.0); HEMOGLOBIN 11.9 G/DL (12.5-16.6); MCH 31.2 PG (29.0-34.0); MCHC 30.7 G/DL (30.0-36.0); MCV 101.3 FL (86-99); RBC DIS.WIDTH-CV 13.6 % (11.8-14.6); RBC DIS.WIDTH-SD 50.7 % (39-53); RED BLOOD COUNT 3.82 M/uL (4.00-5.50); WHITE BLOOD COUNT 22.8 K/uL (4.1-10.2)
[2018-02-02 04:54] LABS: ALBUMIN 4.3 g/dL (3.2-4.8); CHLORIDE 87 mEq/L (99-109); POTASSIUM 3.7 mEq/L (3.7-5.4); SODIUM 144 mEq/L (136-147)
[2018-02-02 04:56] LABS: GLUCOSE 155 mg/dL (70-99); TOTAL PROTEIN 6.4 g/dL (6.4-8.3)
[2018-02-02 04:58] LABS: TOTAL BILIRUBIN 0.3 mg/dL (0.0-1.0)
[2018-02-02 04:59] LABS: SERUM ETHYL ALCOHOL < 10 mg/dL
[2018-02-02 05:00] LABS: ALKALINE PHOSPHATASE 104 IU/L (3-129); CREATININE 0.7 mg/dL (0.6-1.3); GFR ESTIMATE (CALCULATED) > 59 mL/min/ (58.99-99999)
[2018-02-02 05:01] LABS: AST (GOT) 16 IU/L (2-34); UREA NITROGEN (BUN) 11 mg/dL (9-23)
[2018-02-02 05:03] LABS: ALT (GPT) 11 IU/L (3-49)
[2018-02-02 05:04] LABS: TROP-I INTERPRETATION NEGATIVE; TROPONIN-I 0.01 ng/mL (0.0-0.30)
[2018-02-02 05:40] LABS: APPEARANCE CLEAR ((CLEAR)); BILIRUBIN NEGATIVE; BLOOD NEGATIVE; COLOR STRAW ((YELLOW)); GLUCOSE (STRIP) 50; KETONES NEGATIVE; LEUKOCYTES NEGATIVE; NITRITE NEGATIVE; PROTEIN (STRIP) NEGATIVE; SPECIFIC GRAVITY 1.012 (1.000-1.030); UCUL ADDED? NO; UROBILINOGEN 0.2 MG/DL (0.2-1.0)
[2018-02-02 05:49] LABS: AMPHETAMINE NEGATIVE (500 ng/mL); BARBITURATES NEGATIVE (200 ng/mL); BENZODIAZEPINES NEGATIVE (150 ng/mL); BUPRENORPHINE NEGATIVE (10 ng/mL); COCAINE NEGATIVE (150 ng/mL); METHADONE NEGATIVE (200 ng/mL); METHAMPHETAMINE NEGATIVE (500 ng/mL); OPIATES (MORPHINE) PRESUMPTIVE POSITIVE (100 ng/mL); OXYCODONE NEGATIVE (100 ng/mL); PHENCYCLIDINE NEGATIVE (25 ng/mL); PROPOXYPHENE NEGATIVE (300 ng/mL); THC CANNABINOIDS NEGATIVE (50 ng/mL); TRICYCLIC ANTIDEPRESSANTS NEGATIVE (300 ng/mL)
[2018-02-02 06:03] LABS: COMMENTS - BLOOD GASES C+A+; DEVICE VENT; FI02 40 %; MECHANICAL RATE 18 resp/min; MODE AC; SITE RR; TIDAL VOLUME 500 ML; TOTAL RESP RATE 18 resp/min
[2018-02-02 06:04] LABS: PCO2 66 mm Hg (35-45); PEEP 10 CM/H20; PO2 58 mm Hg (80-100); pH 7.47 (7.35-7.45)
[2018-02-02 06:05] LABS: BASE EXCESS 20.8 mEq/L (-3 to +3); CARBOXY HGB 2.7 % (0-5); METHEMOGLOBIN 1.4 % (0-1.5)
[2018-02-02 06:21] LABS: PLATELET COUNT 244 K/uL (156-360)
[2018-02-02 09:00] LABS: INTER. NORMALIZED RATIO 1.3
[2018-02-02 09:03] LABS: PTT 29.8 SEC (25-37)
[2018-02-02 09:12] LABS: HIGH-SENS C-REACTIVE PROTEIN 0.44 MG/DL (0.02-0.20); TRIGLYCERIDES 145 MG/DL (Normal: <150)
[2018-02-02 09:24] LABS: THYROTROPIN (TSH) 0.22 MIU/L (0.4-5.5)
[2018-02-02 11:28] LABS: HEPATITIS B SURFACE ANTIGEN Nonreactive
[2018-02-02 11:29] LABS: HEPATITIS C ANTIBODY Nonreactive
[2018-02-02 11:30] LABS: ANTI-HEPATITIS A VIRUS (IGM) Nonreactive; ANTI-HEPATITIS B CORE (IGM) Nonreactive
[2018-02-03] VITALS (24 sets, daily range): BP systolic 83–172; BP diastolic 49–95
[2018-02-03 05:33] LABS: BASOPHIL (%) 0.1 % (0-1); EOSINOPHIL (%) 0 % (0-5); HEMATOCRIT 29.1 % (38.0-50.0); IMMATURE GRANULOCYTE (%) 0.5 % (0.0-0.7); LYMPHOCYTE (%) 8.6 % (15-42); LYMPHOCYTE COUNT 0.9 K/uL (1.0-2.8); MCH 30.3 PG (29.0-34.0); MCHC 31.6 G/DL (30.0-36.0); MONOCYTE (%) 2.6 % (3-12); MONOCYTE COUNT 0.3 K/uL (0-0.8); NEUTROPHIL (%) 88.2 % (45-76); NEUTROPHIL COUNT 9.5 K/uL (1.8-6.4); RBC DIS.WIDTH-CV 13.8 % (11.8-14.6); RBC DIS.WIDTH-SD 48.4 % (39-53); WHITE BLOOD COUNT 10.8 K/uL (4.1-10.2)
[2018-02-03 05:47] LABS: GIANT PLATELETS 1+; PLAT.SUFFICIENCY ADEQUATE
[2018-02-03 05:48] LABS: PLATELET COUNT 159 K/uL (156-360)
[2018-02-03 05:56] LABS: HIGH-SENS C-REACTIVE PROTEIN 0.42 MG/DL (0.02-0.20)
[2018-02-03 05:58] LABS: ALBUMIN 3.3 G/DL (3.2-4.8); ALKALINE PHOSPHATASE 54 IU/L (3-129); ALT (GPT) 6 IU/L (3-49); AST (GOT) 8 IU/L (2-34); CHLORIDE 97 MEQ/L (99-109); CREATINE KINASE 13 IU/L (1-294); CREATININE 0.8 MG/DL (0.6-1.3); GFR ESTIMATE (CALCULATED) > 59 mL/min/ (58.99-99999); GLUCOSE 172 mg/dL (70-99); MAGNESIUM 2.1 mg/dl (1.3-2.7); PHOSPHORUS 3.1 mg/dL (2.5-4.9); POTASSIUM 4.1 MEQ/L (3.7-5.4); SODIUM 141 MEQ/L (136-147); TOTAL BILIRUBIN 0.2 MG/DL (0.0-1.0); TOTAL PROTEIN 4.7 G/DL (6.4-8.3)
[2018-02-03 05:59] LABS: UREA NITROGEN (BUN) 25 mg/dL (9-23)
[2018-02-03 20:28] LABS: HEMOGLOBIN 9.2 G/DL (12.5-16.6); MCV 95.7 FL (86-99); RED BLOOD COUNT 3.04 M/uL (4.00-5.50)
[2018-02-04] VITALS (23 sets, daily range): BP systolic 94–162; BP diastolic 67–95
[2018-02-04 05:28] LABS: SITE LR
[2018-02-04 05:29] LABS: COMMENTS - BLOOD GASES C+A+; DEVICE VENT; FI02 40 %; MECHANICAL RATE 12 resp/min; MODE AC; PEEP 8 CM/H20; TIDAL VOLUME 500 ML; TOTAL RESP RATE 17 resp/min
[2018-02-04 05:30] LABS: PCO2 86 mm Hg (35-45); pH 7.26 (7.35-7.45)
[2018-02-04 05:31] LABS: CARBOXY HGB 2.1 % (0-5); PO2 62 mm Hg (80-100)
[2018-02-04 05:32] LABS: BASE EXCESS 9.1 mEq/L (-3 to +3); BICARBONATE 38.6 mEq/L (22-26); METHEMOGLOBIN 1.1 % (0-1.5)
[2018-02-04 05:47] LABS: BASOPHIL (%) 0.1 % (0-1); EOSINOPHIL (%) 0 % (0-5); HEMOGLOBIN 10.5 G/DL (12.5-16.6); LYMPHOCYTE (%) 3.7 % (15-42); LYMPHOCYTE COUNT 0.8 K/uL (1.0-2.8); MCH 31.1 PG (29.0-34.0); MCHC 31.8 G/DL (30.0-36.0); MCV 97.6 FL (86-99); MONOCYTE COUNT 0.4 K/uL (0-0.8); NEUTROPHIL (%) 93.2 % (45-76); NEUTROPHIL COUNT 20.4 K/uL (1.8-6.4); PLATELET COUNT 156 K/uL (156-360); RBC DIS.WIDTH-CV 13.9 % (11.8-14.6); RBC DIS.WIDTH-SD 50.1 % (39-53); RED BLOOD COUNT 3.38 M/uL (4.00-5.50); WHITE BLOOD COUNT 21.9 K/uL (4.1-10.2)
[2018-02-04 06:13] LABS: ALBUMIN 3.6 G/DL (3.2-4.8); ALKALINE PHOSPHATASE 58 IU/L (3-129); ALT (GPT) 7 IU/L (3-49); AST (GOT) 8 IU/L (2-34); CHLORIDE 100 MEQ/L (99-109); CREATINE KINASE 14 IU/L (1-294); CREATININE 0.6 MG/DL (0.6-1.3); GFR ESTIMATE (CALCULATED) > 59 mL/min/ (58.99-99999); GLUCOSE 191 mg/dL (70-99); MAGNESIUM 2.1 mg/dl (1.3-2.7); PHOSPHORUS 3.9 mg/dL (2.5-4.9); POTASSIUM 4.1 MEQ/L (3.7-5.4); SODIUM 144 MEQ/L (136-147); TOTAL BILIRUBIN 0.2 MG/DL (0.0-1.0); TOTAL PROTEIN 5.3 G/DL (6.4-8.3); UREA NITROGEN (BUN) 25 mg/dL (9-23)
[2018-02-04 07:51] LABS: COMMENTS - BLOOD GASES A+C+; DEVICE PB 840; FI02 40 %; INSPIRATION TIME 0.8 seconds; MECHANICAL RATE 20 resp/min; MODE ACVC+; SITE RR; TOTAL RESP RATE 20 resp/min
[2018-02-04 07:52] LABS: BASE EXCESS 9.6 mEq/L (-3 to +3); BICARBONATE 36.3 mEq/L (22-26); CARBOXY HGB 2 % (0-5); METHEMOGLOBIN 1.1 % (0-1.5); O2 SATURATION (CALCULATED) 97.7 % (95-99); PCO2 60 mm Hg (35-45); PEEP 8 CM/H20; PO2 80 mm Hg (80-100); TIDAL VOLUME 500 ML; pH 7.39 (7.35-7.45)
[2018-02-05] VITALS (21 sets, daily range): BP systolic 122–188; BP diastolic 85–105
[2018-02-05 05:20] LABS: BASOPHIL (%) 0.1 % (0-1); EOSINOPHIL (%) 0 % (0-5); HEMATOCRIT 33.6 % (38.0-50.0); HEMOGLOBIN 10.6 G/DL (12.5-16.6); IMMATURE GRANULOCYTE (%) 0.9 % (0.0-0.7); LYMPHOCYTE (%) 1.9 % (15-42); LYMPHOCYTE COUNT 0.3 K/uL (1.0-2.8); MCH 30.4 PG (29.0-34.0); MCHC 31.5 G/DL (30.0-36.0); MCV 96.3 FL (86-99); MONOCYTE (%) 3.4 % (3-12); MONOCYTE COUNT 0.6 K/uL (0-0.8); NEUTROPHIL (%) 93.7 % (45-76); NEUTROPHIL COUNT 16.7 K/uL (1.8-6.4); PLATELET COUNT 152 K/uL (156-360); RBC DIS.WIDTH-CV 14.3 % (11.8-14.6); RBC DIS.WIDTH-SD 50.4 % (39-53); RED BLOOD COUNT 3.49 M/uL (4.00-5.50); WHITE BLOOD COUNT 17.8 K/uL (4.1-10.2)
[2018-02-05 06:11] LABS: ALBUMIN 3.2 G/DL (3.2-4.8); ALKALINE PHOSPHATASE 53 IU/L (3-129); ALT (GPT) 8 IU/L (3-49); AST (GOT) 8 IU/L (2-34); CHLORIDE 101 MEQ/L (99-109); CREATINE KINASE 15 IU/L (1-294); CREATININE 0.5 MG/DL (0.6-1.3); GFR ESTIMATE (CALCULATED) > 59 mL/min/ (58.99-99999); GLUCOSE 179 mg/dL (70-99); POTASSIUM 3.9 MEQ/L (3.7-5.4); SODIUM 144 MEQ/L (136-147); TOTAL PROTEIN 5.5 G/DL (6.4-8.3); UREA NITROGEN (BUN) 24 mg/dL (9-23)
[2018-02-05 06:26] LABS: PHOSPHORUS 2.3 mg/dL (2.5-4.9); TOTAL BILIRUBIN 0.3 MG/DL (0.0-1.0)
[2018-02-06] VITALS (23 sets, daily range): BP systolic 107–189; BP diastolic 67–104
[2018-02-06 05:50] LABS: BASOPHIL (%) 0.1 % (0-1); EOSINOPHIL (%) 0 % (0-5); HEMATOCRIT 32.2 % (38.0-50.0); HEMOGLOBIN 10.4 G/DL (12.5-16.6); IMMATURE GRANULOCYTE (%) 0.5 % (0.0-0.7); LYMPHOCYTE (%) 2.5 % (15-42); LYMPHOCYTE COUNT 0.4 K/uL (1.0-2.8); MCH 30.8 PG (29.0-34.0); MCHC 32.3 G/DL (30.0-36.0); MCV 95.3 FL (86-99); MONOCYTE (%) 4.3 % (3-12); MONOCYTE COUNT 0.7 K/uL (0-0.8); NEUTROPHIL (%) 92.6 % (45-76); NEUTROPHIL COUNT 14.3 K/uL (1.8-6.4); PLATELET COUNT 164 K/uL (156-360); RBC DIS.WIDTH-CV 14.5 % (11.8-14.6); RBC DIS.WIDTH-SD 50.3 % (39-53); RED BLOOD COUNT 3.38 M/uL (4.00-5.50); WHITE BLOOD COUNT 15.4 K/uL (4.1-10.2)
[2018-02-06 06:37] LABS: ALKALINE PHOSPHATASE 49 IU/L (3-129); ALT (GPT) 9 IU/L (3-49); AST (GOT) 9 IU/L (2-34); CHLORIDE 101 MEQ/L (99-109); CREATINE KINASE 14 IU/L (1-294); CREATININE 0.5 MG/DL (0.6-1.3); GFR ESTIMATE (CALCULATED) > 59 mL/min/ (58.99-99999); GLUCOSE 168 mg/dL (70-99); MAGNESIUM 1.9 mg/dl (1.3-2.7); PHOSPHORUS 2.6 mg/dL (2.5-4.9); POTASSIUM 3.4 MEQ/L (3.7-5.4); SODIUM 144 MEQ/L (136-147); TOTAL PROTEIN 4.9 G/DL (6.4-8.3); UREA NITROGEN (BUN) 21 mg/dL (9-23)
[2018-02-06 06:40] LABS: TOTAL BILIRUBIN 0.4 MG/DL (0.0-1.0)
[2018-02-06 10:08] LABS: HEMOGLOBIN A1c (GLYCOHEMOGLOB) 5.1 % (Below 5.7)
[2018-02-07] VITALS (23 sets, daily range): BP systolic 90–172; BP diastolic 58–105
[2018-02-07 05:34] LABS: BASOPHIL (%) 0.1 % (0-1); EOSINOPHIL (%) 0.1 % (0-5); HEMOGLOBIN 10.6 G/DL (12.5-16.6); IMMATURE GRANULOCYTE (%) 0.7 % (0.0-0.7); LYMPHOCYTE (%) 3.8 % (15-42); LYMPHOCYTE COUNT 0.7 K/uL (1.0-2.8); MCH 31.3 PG (29.0-34.0); MCHC 32.1 G/DL (30.0-36.0); MCV 97.3 FL (86-99); MONOCYTE (%) 3.5 % (3-12); MONOCYTE COUNT 0.6 K/uL (0-0.8); NEUTROPHIL (%) 91.8 % (45-76); NEUTROPHIL COUNT 16.9 K/uL (1.8-6.4); PLATELET COUNT 188 K/uL (156-360); RBC DIS.WIDTH-CV 14.7 % (11.8-14.6); RED BLOOD COUNT 3.39 M/uL (4.00-5.50); WHITE BLOOD COUNT 18.4 K/uL (4.1-10.2)
[2018-02-07 06:08] LABS: ALBUMIN 3.2 G/DL (3.2-4.8); ALKALINE PHOSPHATASE 56 IU/L (3-129); ALT (GPT) 13 IU/L (3-49); AST (GOT) 11 IU/L (2-34); CHLORIDE 101 MEQ/L (99-109); CREATINE KINASE 13 IU/L (1-294); CREATININE 0.6 MG/DL (0.6-1.3); GFR ESTIMATE (CALCULATED) > 59 mL/min/ (58.99-99999); GLUCOSE 133 mg/dL (70-99); POTASSIUM 3.9 MEQ/L (3.7-5.4); SODIUM 145 MEQ/L (136-147); TOTAL BILIRUBIN 0.4 MG/DL (0.0-1.0); TOTAL PROTEIN 5.2 G/DL (6.4-8.3); UREA NITROGEN (BUN) 23 mg/dL (9-23)
[2018-02-07 06:18] LABS: MAGNESIUM 2.4 mg/dl (1.3-2.7); PHOSPHORUS 3.9 mg/dL (2.5-4.9)
[2018-02-08] VITALS (24 sets, daily range): BP systolic 86–147; BP diastolic 51–91
[2018-02-08 05:31] LABS: BASOPHIL (%) 0.1 % (0-1); EOSINOPHIL (%) 0 % (0-5); HEMATOCRIT 30.3 % (38.0-50.0); HEMOGLOBIN 9.2 G/DL (12.5-16.6); IMMATURE GRANULOCYTE (%) 0.9 % (0.0-0.7); LYMPHOCYTE (%) 2.6 % (15-42); LYMPHOCYTE COUNT 0.4 K/uL (1.0-2.8); MCHC 30.4 G/DL (30.0-36.0); MCV 98.7 FL (86-99); MONOCYTE (%) 4.7 % (3-12); MONOCYTE COUNT 0.7 K/uL (0-0.8); NEUTROPHIL (%) 91.7 % (45-76); NEUTROPHIL COUNT 12.8 K/uL (1.8-6.4); PLATELET COUNT 176 K/uL (156-360); RBC DIS.WIDTH-CV 14.3 % (11.8-14.6); RED BLOOD COUNT 3.07 M/uL (4.00-5.50); WHITE BLOOD COUNT 13.9 K/uL (4.1-10.2)
[2018-02-08 06:02] LABS: ALBUMIN 2.7 G/DL (3.2-4.8); ALKALINE PHOSPHATASE 56 IU/L (3-129); ALT (GPT) 8 IU/L (3-49); AST (GOT) < 7 IU/L (2-34); CHLORIDE 102 MEQ/L (99-109); CREATINE KINASE 12 IU/L (1-294); CREATININE 0.5 MG/DL (0.6-1.3); GFR ESTIMATE (CALCULATED) > 59 mL/min/ (58.99-99999); GLUCOSE 195 mg/dL (70-99); MAGNESIUM 2.2 mg/dl (1.3-2.7); PHOSPHORUS 3.5 mg/dL (2.5-4.9); POTASSIUM 4.3 MEQ/L (3.7-5.4); SODIUM 143 MEQ/L (136-147); UREA NITROGEN (BUN) 27 mg/dL (9-23)
[2018-02-08 06:06] LABS: TOTAL BILIRUBIN 0.2 MG/DL (0.0-1.0); TOTAL PROTEIN 4.4 G/DL (6.4-8.3)
[2018-02-09] VITALS (24 sets, daily range): BP systolic 78–149; BP diastolic 43–92
[2018-02-09 05:47] LABS: BASOPHIL (%) 0.2 % (0-1); EOSINOPHIL (%) 0.1 % (0-5); HEMATOCRIT 33.5 % (38.0-50.0); HEMOGLOBIN 10.4 G/DL (12.5-16.6); IMMATURE GRANULOCYTE (%) 2.6 % (0.0-0.7); LYMPHOCYTE (%) 2.5 % (15-42); LYMPHOCYTE COUNT 0.5 K/uL (1.0-2.8); MCH 30.9 PG (29.0-34.0); MCV 99.4 FL (86-99); MONOCYTE (%) 7.2 % (3-12); MONOCYTE COUNT 1.3 K/uL (0-0.8); NEUTROPHIL (%) 87.4 % (45-76); NEUTROPHIL COUNT 15.8 K/uL (1.8-6.4); PLATELET COUNT 191 K/uL (156-360); RBC DIS.WIDTH-CV 14.2 % (11.8-14.6); RBC DIS.WIDTH-SD 51.8 % (39-53); RED BLOOD COUNT 3.37 M/uL (4.00-5.50)
[2018-02-09 07:17] LABS: CK-MB 0.8 ng/mL (0.0-4.9)
[2018-02-09 08:43] LABS: ALKALINE PHOSPHATASE 65 IU/L (3-129); ALT (GPT) 10 IU/L (3-49); AST (GOT) 9 IU/L (2-34); CHLORIDE 101 MEQ/L (99-109); CKMB RELATIVE INDEX 4.7 (0.0-3.9); CREATINE KINASE 17 IU/L (1-294); CREATININE 0.5 MG/DL (0.6-1.3); GFR ESTIMATE (CALCULATED) > 59 mL/min/ (58.99-99999); GLUCOSE 127 mg/dL (70-99); MAGNESIUM 2.3 mg/dl (1.3-2.7); PHOSPHORUS 2.6 mg/dL (2.5-4.9); POTASSIUM 4.1 MEQ/L (3.7-5.4); SODIUM 143 MEQ/L (136-147); TOTAL BILIRUBIN 0.3 MG/DL (0.0-1.0); TOTAL CK 17 IU/L (1-294); TOTAL PROTEIN 4.7 G/DL (6.4-8.3); UREA NITROGEN (BUN) 34 mg/dL (9-23)
[2018-02-10] VITALS (18 sets, daily range): BP systolic 79–141; BP diastolic 48–91
[2018-02-10 05:44] LABS: BASOPHIL (%) 0.2 % (0-1); BASOPHIL COUNT 0.1 K/uL (0-0.1); EOSINOPHIL (%) 0 % (0-5); HEMATOCRIT 37.2 % (38.0-50.0); HEMOGLOBIN 11.5 G/DL (12.5-16.6); IMMATURE GRANULOCYTE (%) 1.9 % (0.0-0.7); LYMPHOCYTE (%) 5.3 % (15-42); LYMPHOCYTE COUNT 1.6 K/uL (1.0-2.8); MCH 30.9 PG (29.0-34.0); MCHC 30.9 G/DL (30.0-36.0); MONOCYTE (%) 6.8 % (3-12); NEUTROPHIL (%) 85.8 % (45-76); NEUTROPHIL COUNT 25.3 K/uL (1.8-6.4); RBC DIS.WIDTH-CV 14.2 % (11.8-14.6); RED BLOOD COUNT 3.72 M/uL (4.00-5.50); WHITE BLOOD COUNT 29.5 K/uL (4.1-10.2)
[2018-02-10 05:55] LABS: PLATELET COUNT 254 K/uL (156-360)
[2018-02-10 06:44] LABS: CHLORIDE 99 MEQ/L (99-109); CREATININE 0.6 MG/DL (0.6-1.3); GFR ESTIMATE (CALCULATED) > 59 mL/min/ (58.99-99999); POTASSIUM 4.9 MEQ/L (3.7-5.4); SODIUM 140 MEQ/L (136-147); UREA NITROGEN (BUN) 37 mg/dL (9-23)
[2018-02-10 07:05] LABS: GLUCOSE 199 mg/dL (70-99)
[2018-02-10 07:38] LABS: TOTAL CK 48 IU/L (1-294)
[2018-02-10 07:41] LABS: CREATINE KINASE 48 IU/L (1-294)
[2018-02-10 08:21] LABS: CK-MB 1.4 ng/mL (0.0-4.9); CKMB RELATIVE INDEX 2.9 (0.0-3.9)
[2018-02-11] VITALS (19 sets, daily range): BP systolic 66–173; BP diastolic 41–113
[2018-02-11 05:36] LABS: CREATINE KINASE 16 IU/L (1-294); TOTAL CK 16 IU/L (1-294)
[2018-02-11 07:54] LABS: CKMB RELATIVE INDEX 6.3 (0.0-3.9)
[2018-02-11 11:09] LABS: HEMATOCRIT 28.9 % (38.0-50.0); MCH 31.2 PG (29.0-34.0); MCHC 32.2 G/DL (30.0-36.0); RBC DIS.WIDTH-SD 50.2 % (39-53); RED BLOOD COUNT 2.98 M/uL (4.00-5.50)
[2018-02-11 11:11] LABS: CHLORIDE 101 mEq/L (99-109); POTASSIUM 4.1 mEq/L (3.7-5.4); SODIUM 144 mEq/L (136-147)
[2018-02-11 11:13] LABS: GLUCOSE 150 mg/dL (70-99)
[2018-02-11 11:15] LABS: HEMOGLOBIN 9.3 G/DL (12.5-16.6)
[2018-02-11 11:17] LABS: CREATININE 0.6 mg/dL (0.6-1.3); GFR ESTIMATE (CALCULATED) > 59 mL/min/ (58.99-99999)
[2018-02-11 11:18] LABS: UREA NITROGEN (BUN) 37 mg/dL (9-23)
[2018-02-11 12:00] LABS: ANISOCYTOSIS 1+; BAND NEUTROPHILS 23.5 % (0-8.0); EOSINOPHIL ABS CT 0.1; EOSINOPHILS 0.9 % (0-5.0); HYPOCHROMASIA 3+; LYMPHOCYTES 0.9 % (15.0-45.0); MONOCYTES 5.2 % (0-9.0); PLAT.SUFFICIENCY ADEQUATE; PLATELET CLUMPS PRESENT - PLATELET COUNT APPEARS ADEQUATE; PLATELET COUNT UNABLE TO REPORT K/uL (156-360); SEG.NEUTROPHILS 69.5 % (46.0-76.0)
[2018-02-11 19:51] LABS: COMMENTS - BLOOD GASES C+A+; DEVICE NIPPV 980 VENT; FI02 40 %; SITE RR
[2018-02-11 19:52] LABS: PCO2 73 mm Hg (35-45); PEEP 5 CM/H20; PRES. SUPPORT 15 CM/H2O; TOTAL RESP RATE 17 resp/min; pH 7.38 (7.35-7.45)
[2018-02-11 19:53] LABS: BASE EXCESS 15 mEq/L (-3 to +3); BICARBONATE 43.2 mEq/L (22-26); CARBOXY HGB 1.4 % (0-5); METHEMOGLOBIN 1.5 % (0-1.5); O2 SATURATION (CALCULATED) 99.3 % (95-99); PO2 229 mm Hg (80-100)
[2018-02-11 23:35] LABS: COMMENTS - BLOOD GASES C+A+; DEVICE VENT; FI02 50 %; MECHANICAL RATE 16 resp/min; MODE AC; PEEP 5 CM/H20; SITE RR; TIDAL VOLUME 400 ML; TOTAL RESP RATE 16 resp/min
[2018-02-11 23:36] LABS: BASE EXCESS 14.4 mEq/L (-3 to +3); BICARBONATE 41.5 mEq/L (22-26); CARBOXY HGB 1.4 % (0-5); METHEMOGLOBIN 1.3 % (0-1.5); O2 SATURATION (CALCULATED) 99.1 % (95-99); PCO2 67 mm Hg (35-45); PO2 142 mm Hg (80-100)
[2018-02-12] VITALS (23 sets, daily range): BP systolic 76–153; BP diastolic 50–90
[2018-02-12 12:02] LABS: CHLORIDE 99 mEq/L (99-109); POTASSIUM 4.1 mEq/L (3.7-5.4); SODIUM 144 mEq/L (136-147)
[2018-02-12 12:04] LABS: GLUCOSE 128 mg/dL (70-99)
[2018-02-12 12:08] LABS: CREATININE 0.6 mg/dL (0.6-1.3); GFR ESTIMATE (CALCULATED) > 59 mL/min/ (58.99-99999); UREA NITROGEN (BUN) 28 mg/dL (9-23)
[2018-02-13] VITALS (23 sets, daily range): BP systolic 88–140; BP diastolic 7–80
[2018-02-14] VITALS (24 sets, daily range): BP systolic 67–158; BP diastolic 40–94
[2018-02-14 10:54] LABS: INTER. NORMALIZED RATIO 0.9
[2018-02-14 10:57] LABS: PTT 26.8 SEC (25-37)
[2018-02-14 11:15] LABS: ALBUMIN 2.7 G/DL (3.2-4.8); ALKALINE PHOSPHATASE 59 IU/L (3-129); ALT (GPT) 9 IU/L (3-49); AST (GOT) 7 IU/L (2-34); CHLORIDE 94 MEQ/L (99-109); CREATININE 0.5 MG/DL (0.6-1.3); GFR ESTIMATE (CALCULATED) > 59 mL/min/ (58.99-99999); HIGH-SENS C-REACTIVE PROTEIN 3.55 MG/DL (0.02-0.20); POTASSIUM 4.3 MEQ/L (3.7-5.4); SODIUM 141 MEQ/L (136-147); TOTAL BILIRUBIN 0.3 MG/DL (0.0-1.0); TOTAL PROTEIN 4.5 G/DL (6.4-8.3); UREA NITROGEN (BUN) 36 mg/dL (9-23)
[2018-02-14 11:16] LABS: GLUCOSE 209 mg/dL (70-99); MAGNESIUM 1.9 mg/dl (1.3-2.7); PHOSPHORUS 3.7 mg/dL (2.5-4.9)
[2018-02-14 11:20] LABS: HEMATOCRIT 32.1 % (38.0-50.0); HEMOGLOBIN 10.5 G/DL (12.5-16.6); MCH 31.3 PG (29.0-34.0); MCHC 32.7 G/DL (30.0-36.0); MCV 95.5 FL (86-99); PLATELET COUNT 241 K/uL (156-360); RBC DIS.WIDTH-CV 14.3 % (11.8-14.6); RBC DIS.WIDTH-SD 50.2 % (39-53); RED BLOOD COUNT 3.36 M/uL (4.00-5.50)
[2018-02-14 11:22] LABS: BASOPHIL (%) 0.2 % (0-1); BASOPHIL COUNT 0.1 K/uL (0-0.1); EOSINOPHIL (%) 0 % (0-5); IMMATURE GRANULOCYTE (%) 0.8 % (0.0-0.7); LYMPHOCYTE (%) 0.6 % (15-42); LYMPHOCYTE COUNT 0.2 K/uL (1.0-2.8); MONOCYTE (%) 4.9 % (3-12); MONOCYTE COUNT 1.8 K/uL (0-0.8); NEUTROPHIL (%) 93.5 % (45-76); NEUTROPHIL COUNT 33.7 K/uL (1.8-6.4)
[2018-02-15] VITALS (31 sets, daily range): BP systolic 69–178; BP diastolic 44–114
[2018-02-15 06:04] LABS: ALBUMIN 2.2 G/DL (3.2-4.8); ALKALINE PHOSPHATASE 54 IU/L (3-129); ALT (GPT) 9 IU/L (3-49); AST (GOT) 7 IU/L (2-34); CHLORIDE 95 MEQ/L (99-109); CREATININE 0.5 MG/DL (0.6-1.3); GFR ESTIMATE (CALCULATED) > 59 mL/min/ (58.99-99999); GLUCOSE 197 mg/dL (70-99); MAGNESIUM 1.8 mg/dl (1.3-2.7); PHOSPHORUS 3.3 mg/dL (2.5-4.9); POTASSIUM 4.1 MEQ/L (3.7-5.4); SODIUM 141 MEQ/L (136-147); TOTAL PROTEIN 3.9 G/DL (6.4-8.3); UREA NITROGEN (BUN) 33 mg/dL (9-23)
[2018-02-15 06:05] LABS: TOTAL BILIRUBIN 0.2 MG/DL (0.0-1.0)
[2018-02-16] VITALS (24 sets, daily range): BP systolic 82–178; BP diastolic 53–113
[2018-02-16 05:48] LABS: BASOPHIL (%) 0.1 % (0-1); EOSINOPHIL (%) 0 % (0-5); HEMATOCRIT 30.5 % (38.0-50.0); HEMOGLOBIN 9.9 G/DL (12.5-16.6); LYMPHOCYTE (%) 0.3 % (15-42); LYMPHOCYTE COUNT 0.1 K/uL (1.0-2.8); MCH 30.9 PG (29.0-34.0); MCHC 32.5 G/DL (30.0-36.0); MCV 95.3 FL (86-99); MONOCYTE (%) 3.4 % (3-12); MONOCYTE COUNT 0.8 K/uL (0-0.8); NEUTROPHIL (%) 95.2 % (45-76); NEUTROPHIL COUNT 22.7 K/uL (1.8-6.4); PLATELET COUNT 190 K/uL (156-360); RBC DIS.WIDTH-CV 14.5 % (11.8-14.6); RBC DIS.WIDTH-SD 50.5 % (39-53); WHITE BLOOD COUNT 23.8 K/uL (4.1-10.2)
[2018-02-16 06:56] LABS: ALBUMIN 3.2 G/DL (3.2-4.8); ALKALINE PHOSPHATASE 54 IU/L (3-129); CHLORIDE 95 MEQ/L (99-109); CREATININE 0.5 MG/DL (0.6-1.3); GFR ESTIMATE (CALCULATED) > 59 mL/min/ (58.99-99999); GLUCOSE 166 mg/dL (70-99); PHOSPHORUS 3.6 mg/dL (2.5-4.9); POTASSIUM 4.6 MEQ/L (3.7-5.4); SODIUM 145 MEQ/L (136-147); TRIGLYCERIDES 286 MG/DL (Normal: <150); UREA NITROGEN (BUN) 24 mg/dL (9-23)
[2018-02-16 07:15] LABS: ALT (GPT) 20 IU/L (3-49); AST (GOT) 13 IU/L (2-34); TOTAL BILIRUBIN 0.4 MG/DL (0.0-1.0); TOTAL PROTEIN 5.1 G/DL (6.4-8.3)
[2018-02-16 11:13] LABS: COMMENTS - BLOOD GASES C+; DEVICE 840; FI02 40 %; MECHANICAL RATE 16 resp/min; MODE A/C; TIDAL VOLUME 400 ML; TOTAL RESP RATE 18 resp/min
[2018-02-16 11:14] LABS: BASE EXCESS 23.4 mEq/L (-3 to +3); BICARBONATE 50.5 mEq/L (22-26); CARBOXY HGB 1.4 % (0-5); PCO2 71 mm Hg (35-45); PEEP 5 CM/H20; PO2 101 mm Hg (80-100); pH 7.46 (7.35-7.45)
[2018-02-17] VITALS (16 sets, daily range): BP systolic 99–165; BP diastolic 59–90
[2018-02-17 05:45] LABS: BASOPHIL (%) 0.1 % (0-1); EOSINOPHIL (%) 0 % (0-5); HEMATOCRIT 28.4 % (38.0-50.0); HEMOGLOBIN 9.1 G/DL (12.5-16.6); IMMATURE GRANULOCYTE (%) 1.4 % (0.0-0.7); LYMPHOCYTE (%) 1.4 % (15-42); LYMPHOCYTE COUNT 0.2 K/uL (1.0-2.8); MCH 30.6 PG (29.0-34.0); MCV 95.6 FL (86-99); MONOCYTE COUNT 0.6 K/uL (0-0.8); NEUTROPHIL (%) 93.1 % (45-76); NEUTROPHIL COUNT 14.1 K/uL (1.8-6.4); PLATELET COUNT 173 K/uL (156-360); RBC DIS.WIDTH-CV 14.3 % (11.8-14.6); RBC DIS.WIDTH-SD 49.8 % (39-53); RED BLOOD COUNT 2.97 M/uL (4.00-5.50); WHITE BLOOD COUNT 15.2 K/uL (4.1-10.2)
[2018-02-17 06:17] LABS: ALBUMIN 3.3 G/DL (3.2-4.8); ALKALINE PHOSPHATASE 54 IU/L (3-129); ALT (GPT) 20 IU/L (3-49); AST (GOT) 8 IU/L (2-34); CHLORIDE 95 MEQ/L (99-109); CREATININE 0.4 MG/DL (0.6-1.3); GFR ESTIMATE (CALCULATED) > 59 mL/min/ (58.99-99999); GLUCOSE 180 mg/dL (70-99); MAGNESIUM 1.8 mg/dl (1.3-2.7); PHOSPHORUS 2.9 mg/dL (2.5-4.9); POTASSIUM 4.4 MEQ/L (3.7-5.4); SODIUM 146 MEQ/L (136-147); UREA NITROGEN (BUN) 23 mg/dL (9-23)
[2018-02-17 06:20] LABS: TOTAL BILIRUBIN 0.5 MG/DL (0.0-1.0)
[2018-02-17 06:28] LABS: CARBON DIOXIDE (BICARBONATE) > 40.0 MEQ/L (20-31)
[2018-02-18] VITALS (33 sets, daily range): BP systolic 72–158; BP diastolic 45–98
[2018-02-18 04:33] LABS: BASOPHIL (%) 0.1 % (0-1); EOSINOPHIL (%) 0 % (0-5); HEMATOCRIT 30.3 % (38.0-50.0); HEMOGLOBIN 9.8 G/DL (12.5-16.6); IMMATURE GRANULOCYTE (%) 1.4 % (0.0-0.7); LYMPHOCYTE (%) 2.7 % (15-42); LYMPHOCYTE COUNT 0.5 K/uL (1.0-2.8); MCH 30.3 PG (29.0-34.0); MCHC 32.3 G/DL (30.0-36.0); MCV 93.8 FL (86-99); MONOCYTE (%) 4.5 % (3-12); MONOCYTE COUNT 0.8 K/uL (0-0.8); NEUTROPHIL (%) 91.3 % (45-76); NEUTROPHIL COUNT 15.9 K/uL (1.8-6.4); PLATELET COUNT 196 K/uL (156-360); RBC DIS.WIDTH-CV 13.8 % (11.8-14.6); RBC DIS.WIDTH-SD 47.1 % (39-53); RED BLOOD COUNT 3.23 M/uL (4.00-5.50); WHITE BLOOD COUNT 17.5 K/uL (4.1-10.2)
[2018-02-18 04:41] LABS: ALBUMIN 3.2 g/dL (3.2-4.8); CHLORIDE 96 mEq/L (99-109); POTASSIUM 4.4 mEq/L (3.7-5.4); SODIUM 143 mEq/L (136-147)
[2018-02-18 04:42] LABS: MAGNESIUM 1.9 mg/dL (1.3-2.7)
[2018-02-18 04:44] LABS: GLUCOSE 141 mg/dL (70-99); TOTAL PROTEIN 4.6 g/dL (6.4-8.3)
[2018-02-18 04:45] LABS: TOTAL BILIRUBIN 0.7 mg/dL (0.0-1.0)
[2018-02-18 04:47] LABS: ALKALINE PHOSPHATASE 65 IU/L (3-129); CREATININE 0.6 mg/dL (0.6-1.3); GFR ESTIMATE (CALCULATED) > 59 mL/min/ (58.99-99999); PHOSPHORUS 2.9 mg/dL (2.5-4.9)
[2018-02-18 04:48] LABS: UREA NITROGEN (BUN) 27 mg/dL (9-23)
[2018-02-18 04:49] LABS: AST (GOT) 9 IU/L (2-34)
[2018-02-18 04:50] LABS: ALT (GPT) 22 IU/L (3-49)
[2018-02-18 04:58] LABS: CARBON DIOXIDE (BICARBONATE) > 40.0 mEq/L (20-31)
[2018-02-19] VITALS (24 sets, daily range): BP systolic 72–149; BP diastolic 42–96
[2018-02-19 06:36] LABS: BASOPHIL (%) 0.1 % (0-1); EOSINOPHIL (%) 0 % (0-5); HEMATOCRIT 31.8 % (38.0-50.0); HEMOGLOBIN 10.4 G/DL (12.5-16.6); IMMATURE GRANULOCYTE (%) 0.6 % (0.0-0.7); LYMPHOCYTE (%) 1.9 % (15-42); LYMPHOCYTE COUNT 0.3 K/uL (1.0-2.8); MCH 30.3 PG (29.0-34.0); MCHC 32.7 G/DL (30.0-36.0); MCV 92.7 FL (86-99); MONOCYTE COUNT 0.4 K/uL (0-0.8); NEUTROPHIL (%) 95.4 % (45-76); NEUTROPHIL COUNT 16.9 K/uL (1.8-6.4); PLATELET COUNT 233 K/uL (156-360); RBC DIS.WIDTH-CV 13.8 % (11.8-14.6); RBC DIS.WIDTH-SD 47.4 % (39-53); RED BLOOD COUNT 3.43 M/uL (4.00-5.50); WHITE BLOOD COUNT 17.7 K/uL (4.1-10.2)
[2018-02-19 07:03] LABS: ALBUMIN 3.2 G/DL (3.2-4.8); ALKALINE PHOSPHATASE 56 IU/L (3-129); ALT (GPT) 16 IU/L (3-49); AST (GOT) 9 IU/L (2-34); CHLORIDE 99 MEQ/L (99-109); CREATININE 0.5 MG/DL (0.6-1.3); GFR ESTIMATE (CALCULATED) > 59 mL/min/ (58.99-99999); GLUCOSE 179 mg/dL (70-99); MAGNESIUM 1.8 mg/dl (1.3-2.7); PHOSPHORUS 3.8 mg/dL (2.5-4.9); POTASSIUM 4.4 MEQ/L (3.7-5.4); SODIUM 146 MEQ/L (136-147); TOTAL PROTEIN 4.9 G/DL (6.4-8.3); UREA NITROGEN (BUN) 26 mg/dL (9-23)
[2018-02-19 07:10] LABS: TOTAL BILIRUBIN 0.8 MG/DL (0.0-1.0)
[2018-02-20] VITALS (24 sets, daily range): BP systolic 81–128; BP diastolic 52–87
[2018-02-20 05:37] LABS: BASOPHIL (%) 0.1 % (0-1); EOSINOPHIL (%) 0 % (0-5); HEMATOCRIT 29.5 % (38.0-50.0); HEMOGLOBIN 9.8 G/DL (12.5-16.6); IMMATURE GRANULOCYTE (%) 0.5 % (0.0-0.7); LYMPHOCYTE (%) 1.7 % (15-42); LYMPHOCYTE COUNT 0.4 K/uL (1.0-2.8); MCH 30.5 PG (29.0-34.0); MCHC 33.2 G/DL (30.0-36.0); MCV 91.9 FL (86-99); MONOCYTE (%) 1.7 % (3-12); MONOCYTE COUNT 0.4 K/uL (0-0.8); NEUTROPHIL COUNT 20.6 K/uL (1.8-6.4); PLATELET COUNT 202 K/uL (156-360); RBC DIS.WIDTH-CV 13.7 % (11.8-14.6); RBC DIS.WIDTH-SD 46.3 % (39-53); RED BLOOD COUNT 3.21 M/uL (4.00-5.50); WHITE BLOOD COUNT 21.5 K/uL (4.1-10.2)
[2018-02-20 06:05] LABS: ALBUMIN 3.1 G/DL (3.2-4.8); ALKALINE PHOSPHATASE 50 IU/L (3-129); ALT (GPT) 15 IU/L (3-49); AST (GOT) 8 IU/L (2-34); CHLORIDE 98 MEQ/L (99-109); CREATININE 0.5 MG/DL (0.6-1.3); GFR ESTIMATE (CALCULATED) > 59 mL/min/ (58.99-99999); GLUCOSE 160 mg/dL (70-99); MAGNESIUM 1.9 mg/dl (1.3-2.7); PHOSPHORUS 3.5 mg/dL (2.5-4.9); POTASSIUM 3.7 MEQ/L (3.7-5.4); SODIUM 143 MEQ/L (136-147); TOTAL PROTEIN 4.8 G/DL (6.4-8.3); UREA NITROGEN (BUN) 24 mg/dL (9-23)
[2018-02-20 06:06] LABS: TOTAL BILIRUBIN 0.5 MG/DL (0.0-1.0)
[2018-02-21] VITALS (23 sets, daily range): BP systolic 90–132; BP diastolic 53–86
[2018-02-21 05:09] LABS: BASOPHIL (%) 0.1 % (0-1); EOSINOPHIL (%) 0 % (0-5); HEMATOCRIT 28.9 % (38.0-50.0); HEMOGLOBIN 9.6 G/DL (12.5-16.6); IMMATURE GRANULOCYTE (%) 0.7 % (0.0-0.7); LYMPHOCYTE (%) 1.2 % (15-42); LYMPHOCYTE COUNT 0.2 K/uL (1.0-2.8); MCH 30.7 PG (29.0-34.0); MCHC 33.2 G/DL (30.0-36.0); MCV 92.3 FL (86-99); MONOCYTE (%) 1.4 % (3-12); MONOCYTE COUNT 0.2 K/uL (0-0.8); NEUTROPHIL (%) 96.6 % (45-76); NEUTROPHIL COUNT 16.8 K/uL (1.8-6.4); PLATELET COUNT 165 K/uL (156-360); RBC DIS.WIDTH-CV 13.7 % (11.8-14.6); RBC DIS.WIDTH-SD 46.5 % (39-53); RED BLOOD COUNT 3.13 M/uL (4.00-5.50); WHITE BLOOD COUNT 17.4 K/uL (4.1-10.2)
[2018-02-21 05:44] LABS: ALBUMIN 2.9 G/DL (3.2-4.8); ALKALINE PHOSPHATASE 47 IU/L (3-129); ALT (GPT) 15 IU/L (3-49); AST (GOT) 9 IU/L (2-34); CHLORIDE 99 MEQ/L (99-109); CREATININE 0.4 MG/DL (0.6-1.3); GFR ESTIMATE (CALCULATED) > 59 mL/min/ (58.99-99999); GLUCOSE 165 mg/dL (70-99); MAGNESIUM 1.8 mg/dl (1.3-2.7); PHOSPHORUS 3.1 mg/dL (2.5-4.9); POTASSIUM 3.8 MEQ/L (3.7-5.4); SODIUM 143 MEQ/L (136-147); TOTAL BILIRUBIN 0.5 MG/DL (0.0-1.0); TOTAL PROTEIN 4.6 G/DL (6.4-8.3); UREA NITROGEN (BUN) 19 mg/dL (9-23)
[2018-02-22] VITALS (23 sets, daily range): BP systolic 88–151; BP diastolic 52–78
[2018-02-22 05:45] LABS: BASOPHIL (%) 0.1 % (0-1); EOSINOPHIL (%) 0 % (0-5); HEMATOCRIT 28.9 % (38.0-50.0); HEMOGLOBIN 9.3 G/DL (12.5-16.6); LYMPHOCYTE (%) 1.4 % (15-42); LYMPHOCYTE COUNT 0.3 K/uL (1.0-2.8); MCH 29.7 PG (29.0-34.0); MCHC 32.2 G/DL (30.0-36.0); MCV 92.3 FL (86-99); MONOCYTE COUNT 0.4 K/uL (0-0.8); NEUTROPHIL (%) 95.5 % (45-76); NEUTROPHIL COUNT 17.1 K/uL (1.8-6.4); PLATELET COUNT 181 K/uL (156-360); RBC DIS.WIDTH-CV 13.5 % (11.8-14.6); RBC DIS.WIDTH-SD 45.7 % (39-53); RED BLOOD COUNT 3.13 M/uL (4.00-5.50); WHITE BLOOD COUNT 17.9 K/uL (4.1-10.2)
[2018-02-23] VITALS (15 sets, daily range): BP systolic 90–142; BP diastolic 56–83
[2018-02-23 06:18] LABS: BASOPHIL (%) 0.1 % (0-1); EOSINOPHIL (%) 0 % (0-5); HEMATOCRIT 31.1 % (38.0-50.0); HEMOGLOBIN 10.3 G/DL (12.5-16.6); IMMATURE GRANULOCYTE (%) 0.7 % (0.0-0.7); LYMPHOCYTE COUNT 0.4 K/uL (1.0-2.8); MCH 30.5 PG (29.0-34.0); MCHC 33.1 G/DL (30.0-36.0); MONOCYTE (%) 2.2 % (3-12); MONOCYTE COUNT 0.4 K/uL (0-0.8); NEUTROPHIL COUNT 18.3 K/uL (1.8-6.4); PLATELET COUNT 197 K/uL (156-360); RBC DIS.WIDTH-CV 13.5 % (11.8-14.6); RBC DIS.WIDTH-SD 45.7 % (39-53); RED BLOOD COUNT 3.38 M/uL (4.00-5.50); WHITE BLOOD COUNT 19.3 K/uL (4.1-10.2)
[2018-02-23 06:22] LABS: INTER. NORMALIZED RATIO 1.2
[2018-02-23 06:42] LABS: ALBUMIN 2.9 G/DL (3.2-4.8); ALKALINE PHOSPHATASE 60 IU/L (3-129); ALT (GPT) 17 IU/L (3-49); AST (GOT) < 7 IU/L (2-34); CHLORIDE 100 MEQ/L (99-109); CHLORIDE 99 MEQ/L (99-109); CREATININE 0.5 MG/DL (0.6-1.3); GFR ESTIMATE (CALCULATED) > 59 mL/min/ (58.99-99999); GLUCOSE 218 mg/dL (70-99); GLUCOSE 232 mg/dL (70-99); PHOSPHORUS 2.5 mg/dL (2.5-4.9); POTASSIUM 3.3 MEQ/L (3.7-5.4); POTASSIUM 3.4 MEQ/L (3.7-5.4); SODIUM 141 MEQ/L (136-147); SODIUM 142 MEQ/L (136-147); TOTAL BILIRUBIN 0.5 MG/DL (0.0-1.0); TOTAL PROTEIN 4.4 G/DL (6.4-8.3); TRIGLYCERIDES 98 MG/DL (Normal: <150); UREA NITROGEN (BUN) 27 mg/dL (9-23)
[2018-02-23 07:39] LABS: DIGOXIN 0.6 ng/mL (0.8-2.0)
[2018-02-23] MEDS ORDERED: CEFEPIME HCL2 GM IV (10:54)
[2018-02-23] MEDS ORDERED: APRESOLINE10 MG GT (10:55)
[2018-02-23] MEDS ORDERED: ELIQUIS5 MG GT (10:55)
[2018-02-23] MEDS ORDERED: fentaNYL Citrate IV (10:56)
[2018-02-23] MEDS ORDERED: CARDIZEM60 MG GT (10:56)
[2018-02-23] MEDS ORDERED: ETH-OXYDOS20 MG/1 ML GT (10:56)
[2018-02-23] MEDS ORDERED: LORAZEPAM2 MG/1 M1 IV (10:57)
[2018-02-23] MEDS ORDERED: DIAZEPAM5 MG GT (10:57)
[2018-02-23] MEDS ORDERED: QUETIAPINE FUMA50 MG GT (10:57)
[2018-02-23] MEDS ORDERED: NATURAL BALANCE15 M1 BOTH EYES ×2 (10:58)
[2018-02-23] MEDS ORDERED: DOCU LIQUI50 MG/5 ML GT (10:59)
[2018-02-23] MEDS ORDERED: POLYETHYLENE GL17 GM GT (10:59)
[2018-02-23] MEDS ORDERED: METOCLOPRAM5 MG/1 M1 IV (11:00)
[2018-02-23] MEDS ORDERED: METOCLOPRAM5 MG/5 ML GT (11:00)
[2018-02-23] MEDS ORDERED: NOVOLOG 10100 UNITS/ SC (11:01)
== END 2018-02-23 13:45 | disposition designated cancer center or children's hospital (05) | DRG 4 ==
LOC: EME → EDBD 03:55 → 4WEST 06:14 → EDOF 06:14 → 4WEST 06:14 → ENRESERV 06:15 → 4WEST 07:27
PROVIDERS: Emergency Medicine; Internal Medicine; Internal Medicine Critical Care Medicine; Physician Assistant Medical; Surgery
PROC: 5A1955Z Respiratory Ventilation, Greater than 96 Consecutive Hours (ICD-10-PCS; principal; 2018-02-02)
PROC: 0BH18EZ Insertion of Endotracheal Airway into Trachea, Via Natural or Artificial Opening Endoscopic (ICD-10-PCS; 2018-02-02)
PROC: B543ZZA Ultrasonography of Right Jugular Veins, Guidance (ICD-10-PCS; 2018-02-02)
PROC: 02HV33Z Insertion of Infusion Device into Superior Vena Cava, Percutaneous Approach (ICD-10-PCS; 2018-02-02)
PROC: 5A09357 Assistance with Respiratory Ventilation, Less than 24 Consecutive Hours, Continuous Positive Airway Pressure (ICD-10-PCS; 2018-02-11)
PROC: 5A2204Z Restoration of Cardiac Rhythm, Single (ICD-10-PCS; 2018-02-11)
PROC: 5A1955Z Respiratory Ventilation, Greater than 96 Consecutive Hours (ICD-10-PCS; 2018-02-12)
PROC: 0BH18EZ Insertion of Endotracheal Airway into Trachea, Via Natural or Artificial Opening Endoscopic (ICD-10-PCS; 2018-02-12)
PROC: 5A2204Z Restoration of Cardiac Rhythm, Single (ICD-10-PCS; 2018-02-15)
PROC: 0B113F4 Bypass Trachea to Cutaneous with Tracheostomy Device, Percutaneous Approach (ICD-10-PCS; 2018-02-18)
PROC: 0DH63UZ Insertion of Feeding Device into Stomach, Percutaneous Approach (ICD-10-PCS; 2018-02-18)
PROC: 0BJ08ZZ Inspection of Tracheobronchial Tree, Via Natural or Artificial Opening Endoscopic (ICD-10-PCS; 2018-02-18)
DX: J96.21 Acute and chronic respiratory failure with hypoxia (principal); J96.22 Acute and chronic respiratory failure with hypercapnia; J44.0 Chronic obstructive pulmonary disease with (acute) lower respiratory infection; J18.9 Pneumonia, unspecified organism; J15.1 Pneumonia due to Pseudomonas; B95.62 Methicillin resistant Staphylococcus aureus infection as the cause of diseases classified elsewhere; J44.1 Chronic obstructive pulmonary disease with (acute) exacerbation; E87.2 Acidosis; I95.9 Hypotension, unspecified; R60.1 Generalized edema; R33.9 Retention of urine, unspecified; G62.81 Critical illness polyneuropathy; G82.50 Quadriplegia, unspecified; R73.9 Hyperglycemia, unspecified; T38.0X5A Adverse effect of glucocorticoids and synthetic analogues, initial encounter; I48.1 Persistent atrial fibrillation; I48.92 Unspecified atrial flutter; F41.9 Anxiety disorder, unspecified; K21.9 Gastro-esophageal reflux disease without esophagitis; E72.20 Disorder of urea cycle metabolism, unspecified; I27.20 Pulmonary hypertension, unspecified; I27.81 Cor pulmonale (chronic); J98.11 Atelectasis; Z99.81 Dependence on supplemental oxygen; Z87.891 Personal history of nicotine dependence; Z88.7 Allergy status to serum and vaccine; Z86.14 Personal history of Methicillin resistant Staphylococcus aureus infection; Z79.52 Long term (current) use of systemic steroids
CPT/HCPCS: 36600; 71045; 71275; 76937; 80048; 80053; 80074; 80162; 80202; 81003; 82140; 82550; 82550 91; 82553; 82803; 82948; 83036; 83605; 83735; 83880; 84100; 84145 90; 84439; 84443; 84478; 84484; 84999; 85025; 85027; 85610; 85730; 86141; 86850; 86900; 86901; 87040; 87070; 87077; 87147; 87186; 87205; 87449; 87493; 87641; 93005; 94002; 94003; 94640; 94760; 94799; 97530 GO; 97530 GP; 99281; 99285; A6214; C1751; C1769; C1894; C9113; G0480; J0153; J0692; J1160; J1630; J1650; J1815; J1940; J1956; J2020; J2060; J2250; J2370; J2543; J2704; J2765; J2920; J2930; J3010; J3370; J3475; J3480; J7050; P9045; P9047; S0028